=== PATIENT | male | born 1950 | race Caucasian/White ===

== ENCOUNTER → 2019-04-08 09:12 | Outpatient (CLI) | payer OTHER, SELFPAY ==
[2019-04-08 10:02] LABS: Hemoglobin A1C% w Est Avg Glu 6.1 % (4.0-6.0)
[2019-04-08 10:37] LABS: BUN Creatinine Ratio 26.7 (6-22); Blood Urea Nitrogen 24 mg/dL (9-20); Carbon Dioxide 27 mmol/L (22-32); Chloride 103 mmol/L (98-107); Cholesterol 112 mg/dL (140-199); Estimated Glomerular Filt Rate > 60.0 mL/min (>60); Glucose 147 mg/dL (80-110); HDL Cholesterol 47 mg/dL (40-60); HEMOLYSIS < 15 (0-50); LDL Cholesterol Calculated 50 mg/dL (<100); Potassium 4.7 mmol/L (3.4-5.1); Sodium 138 mmol/L (137-145); Triglycerides 75 mg/dL (35-150)
[2019-04-08 11:44] LABS: Prostate Specific Antigen Scrn < 0.064 ng/mL (0.1-4.0)
== END ==
PROVIDERS: PCP Student in an Organized Health Care Education/Training Program; Visit Provider Student in an Organized Health Care Education/Training Program
DX: E11.9 Type 2 diabetes mellitus without complications (principal); I10 Essential (primary) hypertension; C61 Malignant neoplasm of prostate
CPT/HCPCS: 36415; 80048; 80061; 83036; G0103

== ENCOUNTER → 2020-04-29 12:33 | Outpatient (CLI) | payer OTHER, SELFPAY ==
--- NOTE | 2020-04-29 | DI.US.S_ITS ---
PROCEDURE: US SCROTUM INDICATIONS: TESTICULAR PAIN TECHNIQUE: Real-time scanning was performed of the scrotum and testicles, with image documentation. Color and pulse Doppler interrogation was performed of both testicles. COMPARISON: None. FINDINGS: Right: Testicle is normal in size at 4.1 x 2.1 x 2.5 cm, and homogenous in echotexture. Epididymis is normal in overall size and morphology. No hydrocele or varicoceles. Overlying scrotal skin is normal in thickness. Left: Testicle is normal in size at 3.7 x 1.9 x 3 cm, and homogeneous in echotexture. Epididymis is mildly prominent. It is reported that the left epididymis corresponds to the area of the patient's sensitivity. No hydrocele or varicoceles. Overlying scrotal skin is normal in thickness. Doppler: Color and pulse Doppler demonstrate normal and symmetric arterial flow in both testicles. Increased vascularity can be seen involving the epididymis, left worse than right. IMPRESSION: Increased vascularity can be seen involving the epididymis. The left epididymis corresponds to the area of the patient's sensitivity. Epididymitis is suspected. Dictated by: Roberto Carlos Saucedo M.D. on 04/29/2020 at 15:26 Approved by: Roberto Carlos Saucedo M.D. on 04/29/2020 at 15:28
== END ==
PROVIDERS: PCP Student in an Organized Health Care Education/Training Program; Referring Provider Student in an Organized Health Care Education/Training Program; Visit Provider Student in an Organized Health Care Education/Training Program
DX: N50.819 Testicular pain, unspecified (principal)
CPT/HCPCS: 76870

== ENCOUNTER → 2020-06-29 10:04 | Outpatient (CLI) | payer OTHER, SELFPAY ==
--- NOTE | 2020-06-29 | DI.RAD.S_ITS ---
PROCEDURE: XR FOOT LT MIN 3V INDICATIONS: LEFT FOOT PAIN TECHNIQUE: 3 views of the foot were acquired. COMPARISON: None. FINDINGS: Bones: No fractures or dislocations. No suspicious bony lesions. There is a hallux valgus. Moderate 1st metatarsophalangeal joint degeneration. Soft tissues: No tibiotalar joint effusion. Achilles tendon appears normal. 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 Dictated by: Mikayla Fuller M.D. on 06/29/2020 at 11:40 Approved by: Mikayla Fuller M.D. on 06/29/2020 at 11:42
== END ==
PROVIDERS: PCP Student in an Organized Health Care Education/Training Program; Referring Provider Student in an Organized Health Care Education/Training Program; Visit Provider Student in an Organized Health Care Education/Training Program
DX: M79.672 Pain in left foot (principal); M20.12 Hallux valgus (acquired), left foot; M19.072 Primary osteoarthritis, left ankle and foot
CPT/HCPCS: 73630

== ENCOUNTER → 2021-06-12 11:06 | Outpatient (CLI) | payer OTHER, SELFPAY ==
--- NOTE | 2021-06-12 | DI.RAD.S_ITS ---
PROCEDURE: XR KUB INDICATIONS: CALCIUM IN URINE TECHNIQUE: One view of the abdomen acquired. COMPARISON: [facility], CT, CHEST/ABD/PELVIS W/CON (PNL), 02/13/2015, 15:52. FINDINGS: Surgical changes and devices: Bilateral lymph node dissection clips can be seen. Bowel: Bowel gas pattern is normal. Soft tissues: No suspicious abdominal calcifications. Visualized solid organ contours appear normal in size. Bones: The bones are slightly hyperdense, yet without discrete sclerotic lesion seen on this study. Age-appropriate bony degenerative changes are seen. Mild levoconvex scoliotic curvature is noted. IMPRESSION: No kidney stones are seen on this plain film study. No significant kidney abnormality can be seen on this plain film examination. If it would be helpful for clinical management decision making, please consider a dedicated CT of the abdomen pelvis, perhaps according to the IVP protocol. Postoperative and degenerative changes are seen. The bones are slightly hyperdense, yet without discrete suspicious sclerotic lesions. If the CT is done, the bones could be better evaluated. Alternatively (if there is strong clinical concern for prostate cancer metastatic disease to the bones) please consider a whole-body nuclear medicine bone scan. Dictated by: Roberto Carlos Saucedo M.D. on 06/12/2021 at 10:36 Approved by: Roberto Carlos Saucedo M.D. on 06/12/2021 at 10:38
== END ==
PROVIDERS: PCP Student in an Organized Health Care Education/Training Program; Referring Provider Student in an Organized Health Care Education/Training Program; Visit Provider Student in an Organized Health Care Education/Training Program
DX: N50.812 Left testicular pain (principal)
CPT/HCPCS: 74018

== ENCOUNTER → 2022-01-12 14:08 | Outpatient (CLI) | payer OTHER, SELFPAY ==
--- NOTE | 2022-01-12 14:11 | DI.US.S_ITS ---
PROCEDURE: US SCROTUM INDICATIONS: Left testicular pain TECHNIQUE: Real-time scanning was performed of the scrotum and testicles, with image documentation. Color and pulse Doppler interrogation was performed of both testicles. COMPARISON: [facility], , US SCROTUM, 04/29/2020, 12:47. FINDINGS: Right: Testicle is normal in size at 4 x 2 x 1.9 cm, and homogenous in echotexture. Epididymis is normal in overall size and morphology. Measures 0.4 cm. No hydrocele or varicoceles. Overlying scrotal skin is normal in thickness. Left: Testicle is normal in size at 3.7 x 2.3 x 1.8 cm, and homogeneous in echotexture. Scrotal pleural or testicular appendage measuring 0.4 x 0.4 x 0.3 cm. Epididymis is slightly thickened measuring 0.8 cm. No hyperemia demonstrated. Small hydrocele. No varicoceles. Overlying scrotal skin is normal in thickness. Doppler: Color and pulse Doppler demonstrate normal and symmetric arterial flow in both testicles. IMPRESSION: 1. Left epididymis is slightly thickened compared to the right. This could be the sequelae of prior inflammatory process. No hyperemia to suggest epididymitis at this time. 2. Small left hydrocele. 3. Left scrotal pleural or testicular appendage measuring 0.4 cm. 4. No testicular mass. Dictated by: Ernesto Manrique M.D. on 01/12/2022 at 16:29 Approved by: Ernesto Manrique M.D. on 01/12/2022 at 16:34
== END ==
PROVIDERS: PCP Student in an Organized Health Care Education/Training Program; Referring Provider Student in an Organized Health Care Education/Training Program; Visit Provider Student in an Organized Health Care Education/Training Program
DX: N50.812 Left testicular pain (principal); N43.3 Hydrocele, unspecified
CPT/HCPCS: 76870

== ENCOUNTER 2023-09-28 17:49 | Inpatient (IN) | payer MEDICARE, OTHER, SELFPAY ==
[2023-09-28] VITALS (20 sets, daily range): BP systolic 125–192; BP diastolic 64–94; PULSE 111–140; RESP 16–31; TEMP 36.8–37.7; O2SAT 94–98; BMI 22.0
--- NOTE | 2023-09-28 18:02 | DI.RAD.S_ITS ---
PROCEDURE: XR CHEST 1V INDICATIONS: chest pain TECHNIQUE: One view of the chest was acquired. COMPARISON: None. FINDINGS: Surgical changes and devices: None. Lungs and pleura: Lungs are clear. No pleural effusions or pneumothorax. Mediastinum: Mediastinal contours appear normal. Heart size is normal. Bones and chest wall: No suspicious bony lesions. Overlying soft tissues appear unremarkable. IMPRESSION: No acute cardiopulmonary abnormality is seen. Dictated by: Abhilash Victoria M.D. on 09/28/2023 at 19:05 Approved by: Abhilash Victoria M.D. on 09/28/2023 at 19:05
[2023-09-28 18:24] LABS: Add Manual Diff / Slide Review NO; Basophils Absolute Auto 0 /uL (0-100); Basophils Percent Auto 0.2 % (0-2); Eosinophils Absolute Auto 100 /uL (0-450); Eosinophils Percent Auto 0.5 % (2-4); Hematocrit 39.5 % (41-53); Hemoglobin 13.2 g/dL (13.5-17.5); Lymphocytes Absolute Auto 900 /uL (1100-4500); Lymphocytes Percent Auto 8.1 % (25-40); Mean Corpuscular HGB Conc 33.5 % (30-36); Mean Corpuscular Hemoglobin 29.7 PG (26-34); Mean Corpuscular Volume 88.5 fL (80-100); Monocytes Absolute Auto 1300 /uL (0-900); Neutrophils Absolute Auto 8700 /uL (1500-7000); Neutrophils Percent Auto 79.2 % (50-75); Platelet Count 216 X10^3/uL (150-400); Red Blood Cell Count 4.46 X10^6/uL (4.5-5.9); Red Cell Distribution Width 13.9 % (11.6-14.8)
--- NOTE | 2023-09-28 18:25 | PC.NURSE ---
Pt came to the ED today because he has been having increasing left knee pain and developing blisters around surgical site s/p having surgery on 09/25/[address] Gong. Pt notes that he started experiencing nausea and vomiting earlier today and was seen at the orthopedic surgeon's office by the on-call PA. Dressing changed at the office to non-stick gauze and chloe wrap. Pt was instructed to come to the ED due to elevated HR at 125. Pt denies fevers and is afebrile at triage, however, states that pt is acting sleepier than normal. Dressing removed and left knee is hot to touch, edemetous and red. No drainage noted. Pt a&ox4 and answers all questions appropriately. at bedside.
[2023-09-28 18:35] LABS: INR 1.1 (0.9-1.3); Prothrombin Time 12.7 SECONDS (9.4-12.5)
[2023-09-28 18:37] LABS: Lactate (Lactic Acid) 2.3 mmol/L (0.7-2.1); PTT Partial Thromboplastin Tim 30 SECONDS (25.1-36.5)
[2023-09-28 18:39] LABS: Alanine Aminotransferase 54 IU/L (<50); Albumin 4.3 g/dL (3.5-5.0); Albumin Globulin Ratio 1.2 (1.0-2.8); Alkaline Phosphatase 87 U/L (38-126); Aspartate Aminotransferase 56 IU/L (17-59); Bilirubin Total 1.1 mg/dL (0.2-1.3); Blood Urea Nitrogen 31 mg/dL (9-20); Calcium 9.2 mg/dL (8.4-10.2); Carbon Dioxide 23 mmol/L (22-32); Chloride 97 mmol/L (98-107); Creatine Kinase 208 U/L (55-170); Estimated Glomerular Filt Rate 44 mL/min (>60); Globulin 3.7 g/dL (1.7-4.1); Glucose 160 mg/dL (80-110); HEMOLYSIS < 15 (0-50); Lipase 30 U/L (23-300); Magnesium 1.9 mg/dL (1.6-2.3); Potassium 4.1 mmol/L (3.4-5.1); Sodium 135 mmol/L (137-145)
[2023-09-28 18:47] LABS: D Dimer 2131 ng/ml (<500)
[2023-09-28 18:50] LABS: Troponin I < 0.012 ng/mL (0.01-0.034)
[2023-09-28 18:55] LABS: Procalcitonin 0.64 ng/mL (<0.5)
[2023-09-28 20:01] LABS: Reflexed Lactate in 2 Hours Y
[2023-09-28] MEDS: SODIUM CHLORIDE 0.9% 1,000 ML 1000 ML IV ×2 (20:10→21:13)
--- NOTE | 2023-09-28 20:25 | DI.CT.S_ITS ---
PROCEDURE: CT ANGIO CHEST PE PROTOCOL INDICATIONS: dyspnea, elevated d dimer TECHNIQUE: After the administration of intravenous contrast, 2 mm thick sections acquired from the pulmonary apices to the posterior costophrenic angles. 3-dimensional maximum intensity projection (MIP) coronal and sagittal reformats were then acquired through the thorax. For radiation dose reduction, the following was used: automated exposure control, adjustment of mA and/or kV according to patient size. COMPARISON: None. FINDINGS: Image quality: Diagnostic, mild motion artifact Lungs and pleura: Bibasilar opacities and atelectasis. No dense consolidation or drainable pleural effusion. Overall lung volumes are low. There is bronchial wall thickening at the bases. No nodule over 6 mm. Smaller nodules are present, not requiring dedicated follow-up imaging per Fleischner guidelines. Mediastinum, heart, and esophagus: No acute pulmonary embolism identified. Some of the distal arteries are obscured by motion. No hiatal hernia. There are coronary calcifications. Borderline heart size. No pathologic lymph nodes by size criteria. Chest wall and thyroid: Unremarkable Upper abdomen: Left lobe liver cyst. Colonic diverticula. Duodenal diverticulum. Mildly distended gallbladder. No radiopaque gallstones. Bones: Degenerative changes, no acute or suspicious abnormality. Ill-defined sclerosis of the vertebral bodies. IMPRESSION: There is no acute pulmonary embolism. Mild bibasilar opacities likely representing aspiration/bronchitis and atelectasis. Consider future imaging surveillance to assess for resolution. Ill-defined sclerosis of the vertebral bodies is indeterminate, correlate with any history of malignancy such as prostate. Other findings as above. Dictated by: Skip Cain M.D. on 09/28/2023 at 21:14 Approved by: Skip Cain M.D. on 09/28/2023 at 21:20
[2023-09-28 20:42] LABS: Lactate 2HR (Lactic Acid Rflx) 2.2 mmol/L (0.7-2.1)
[2023-09-28] MEDS: PIPERACILLIN/TAZO 4.5 GM in SODIUM CHLORIDE 0.9% 100 ML IV (20:59)
--- NOTE | 2023-09-28 21:14 | ED_ITS ---
HPI - General Adult <Valorie Painter MD - Last Filed: 10/30/23 00:54> General Chief complaint: Fever Stated complaint: sent for rapid heartrate Time Seen by Provider: 09/28/23 18:07 Source: patient and family Mode of arrival: Wheelchair History of Present Illness HPI narrative: 73-year-old gentleman with history of diabetes, hypertension with left knee replacement on September 25. He developed some blistering from the tape around his wound and some vomiting today. He was at an orthopedic follow up appointment and he was noted to be significantly tachycardic, increasingly weak and sent to the ER for further evaluation. He notes that he has been so tired he almost felt that he was going to pass out today. He does not note that his heart rate is going particularly fast. He isn't complaining of fevers. He was surprised with the blisters that had developed around the wound, he was not aware that he had a tape allergy. Related Data Home Medications Medication Instructions Recorded Confirmed lisinopril 10 mg tablet 30 mg PO DAILY 02/24/22 09/30/23 metformin 500 mg tablet 2,000 mg PO DAILY 02/24/22 09/29/23 rizatriptan 5 mg tablet See Rx Instructions PO .COMPLEX 02/24/22 09/29/23 glipizide 10 mg tablet, extended 10 mg PO DAILY 09/28/23 09/29/23 release 24 hr aspirin 1 tab BID blood clot prevention 09/29/23 09/29/23 oxycodone 5 mg tablet 5 - 10 mg PO Q4HRWA Pain 09/29/23 09/29/23 Previous Rx's Medication Instructions Recorded amlodipine 5 mg tablet (Norvasc) 10 mg (2 x 5 mg) PO DAILY #30 tabs 10/01/23 metoprolol tartrate 25 mg tablet 100 mg (4 x 25 mg) PO BID #30 tabs 10/01/23 tamsulosin 0.4 mg capsule (Flomax) 0.4 mg PO DAILY #30 caps 10/01/23 Allergies Allergy/AdvReac Type Severity Reaction Status Date / Time No Known Drug Allergies Allergy Verified 09/28/23 19:16 Review of Systems <Valorie Painter MD - Last Filed: 10/30/23 00:54> Review of Systems Narrative: Pertinent positive and negative findings as per HPI Patient History <Valorie Painter MD - Last Filed: 10/30/23 00:54> Medical History Hypertension Diabetes Social History household members: significant other Smoking Status: Never smoker alcohol intake: current Smoking Status: Never smoker Substance Use Type: does not use Exam <Valorie Painter MD - Last Filed: 10/30/23 00:54> Initial Vital Signs Initial Vital Signs: Vital Signs Temperature 98.3 F 09/28/23 17:55 Pulse Rate 125 H 09/28/23 17:55 Respiratory Rate 16 09/28/23 17:55 Blood Pressure 137/66 09/28/23 17:55 Pulse Oximetry 98 09/28/23 17:55 Oxygen Delivery Method Room Air 09/28/23 17:55 General: Fatigued appearing but in no acute distress. Able to give a complete and coherent history. Well-nourished well-developed HEENT: Moist mucous membranes, normal sclera with reactive pupils, Neck: No JVD, supple Respiratory: Lungs are clear to auscultation, no wheezing no rales no rhonchi. Full and symmetrical air movement Cardiac: Tachycardic at 120, no murmurs Abdomen: Soft, nontender, good bowel tones, no flank pain Skin: Left surgical wound is evaluated. The wound itself looks like it is healing nicely. There are bulla around it in the same distribution as the tape. I am small bulla developing over his calf where the Matteo wrap had been rubbing. These do not appear to be infected. He has some bruising consistent with postoperative changes in the posterior thigh. Neurologic: Grossly neurologically intact with no obvious asymmetries or abnormalities Extremities: Right leg suggests decreased perfusion with capillary refill in the for 2nd range and some mild mottling. Left leg slightly swollen as should be expected 3 days postop. Neurovascularly intact bilaterally in the lower extremities. Psych: Cooperative, appropriate insight and affect <Sulema Plunkett DO - Last Filed: 09/29/23 08:17> Initial Vital Signs Initial Vital Signs: Vital Signs Temperature 98.3 F 09/28/23 17:55 Pulse Rate 125 H 09/28/23 17:55 Respiratory Rate 16 09/28/23 17:55 Blood Pressure 137/66 09/28/23 17:55 Pulse Oximetry 98 09/28/23 17:55 Oxygen Delivery Method Room Air 09/28/23 17:55 Course <Valorie Painter MD - Last Filed: 10/30/23 00:54> Orders Ordered: Discontinued Medications Acetaminophen (Acetaminophen 325 Mg Tablet) 975 mg PO NOW ONE Stop: 09/29/23 07:39 Last Admin: 09/29/23 08:02 Dose: 975 mg Documented By: AMV Acetaminophen (Acetaminophen 325 Mg Tablet) 975 mg PO Q6HR PRN PRN Reason: Fever/Mild Pain (1-3) Last Admin: 10/01/23 09:22 Dose: 975 mg Documented By: Admin: 09/30/23 17:02 Dose: 975 mg Documented By: Admin: 09/30/23 10:11 Dose: 975 mg Documented By: Admin: 09/29/23 23:23 Dose: 975 mg Documented By: AT Adenosine (Adenosine 6 Mg/2 Ml Vial) 6 mg IV NOW ONE Stop: 09/28/23 23:20 Last Admin: 09/28/23 23:37 Dose: 6 mg Documented By: OW Amlodipine Besylate (Amlodipine 5 Mg Tablet) 5 mg PO DAILY COUNT INCLUDES THE [facility] Last Admin: 09/30/23 17:02 Dose: 5 mg Documented By: MS Amlodipine Besylate (Amlodipine 5 Mg Tablet) 10 mg PO DAILY COUNT INCLUDES THE [facility] Last Admin: 10/01/23 08:17 Dose: 10 mg Documented By: MM Aspirin (Aspirin Ec 81 Mg Tablet) 81 mg PO BID COUNT INCLUDES THE [facility] Last Admin: 10/01/23 08:18 Dose: 81 mg Documented By: Admin: 09/30/23 21:38 Dose: 81 mg Documented By: AT Heparin Sodium (Porcine) (Heparin 5,000 Unit/Ml Vial) 5,250 unit 80 unit/kg (5250 unit) IV NOW ONE Stop: 09/28/23 23:55 Last Admin: 09/29/23 00:14 Dose: 5,250 unit Documented By: OW Heparin Sodium (Porcine) (Heparin 5,000 Unit/Ml Vial) 5,000 unit SUBCUT BID COUNT INCLUDES THE [facility] Last Admin: 10/01/23 08:18 Dose: 5,000 unit Documented By: Admin: 09/30/23 21:38 Dose: 5,000 unit Documented By: Admin: 09/30/23 08:00 Dose: 5,000 unit Documented By: Admin: 09/29/23 20:20 Dose: 5,000 unit Documented By: Admin: 09/29/23 10:10 Dose: 5,000 unit Documented By: DEANN Sodium Chloride (Normal Saline 0.9%) 1,000 mls @ 1,000 mls/hr IV BOLUS ONE Stop: 09/28/23 20:45 Last Infusion: 09/28/23 21:10 Dose: Infused Documented By: Admin: 09/28/23 20:10 Dose: 1,000 mls/hr Documented By: OW Sodium Chloride (Normal Saline 0.9%) 1,000 mls @ 1,000 mls/hr IV BOLUS PRN PRN Reason: Fluid replacement Last Infusion: 09/28/23 22:30 Dose: Infused Documented By: Admin: 09/28/23 21:13 Dose: 1,000 mls/hr Documented By: AISLINN Piperacillin Sod/Tazobactam (Sod 4.5 gm/ Sodium Chloride) 100 mls @ 200 mls/hr IV NOW ONE Stop: 09/28/23 20:26 Last Infusion: 09/28/23 21:46 Dose: Infused Documented By: Admin: 09/28/23 20:59 Dose: 200 mls/hr Documented By: AISLINN Heparin Sodium/Dextrose (Heparin Drip) 25,000 unit in 500 mls @ 23.678 mls/hr IV CONT KAREEM; Protocol Last Titration: 09/29/23 08:02 Dose: Infused Documented By: BLAYNE Co-signed By: MERRITT Admin: 09/29/23 00:18 Dose: 18 units/kg/hr, 23.678 mls/hr Documented By: AISLINN Co-signed By: ERIC Piperacillin Sod/Tazobactam (Sod 3.375 gm/ Sodium Chloride) 100 mls @ 25 mls/hr IV Q8H KAREEM Last Admin: 09/29/23 00:56 Dose: Not Given Documented By: AISLINN Piperacillin Sod/Tazobactam (Sod 3.375 gm/ Sodium Chloride) 100 mls @ 25 mls/hr IV Q8H KAREEM Last Admin: 09/29/23 11:00 Dose: Not Given Documented By: Infusion: 09/29/23 06:11 Dose: Infused Documented By: Admin: 09/29/23 01:30 Dose: 25 mls/hr Documented By: AISLINN Sodium Chloride (Normal Saline 0.9%) 1,000 mls @ 100 mls/hr IV CONT KAREEM Stop: 09/29/23 20:29 Last Infusion: 09/29/23 21:31 Dose: Infused Documented By: Admin: 09/29/23 11:30 Dose: 100 mls/hr Documented By: Infusion: 09/29/23 11:30 Dose: Infused Documented By: Admin: 09/29/23 10:18 Dose: 100 mls/hr Documented By: DEANN Magnesium Sulfate (Magnesium Sulfate) 2 gm in 50 mls @ 25 mls/hr IV NOW ONE Stop: 09/29/23 10:20 Last Admin: 09/29/23 10:03 Dose: 25 mls/hr Documented By: DEANN Co-signed By: KANDY Dextrose (D10w) 100 mls @ 1,200 mls/hr IV PRN PRN PRN Reason: Hypoglycemia Piperacillin Sod/Tazobactam (Sod 3.375 gm/ Sodium Chloride) 100 mls @ 25 mls/hr IV Q8H KAREEM Sodium Chloride (Normal Saline 0.9%) 1,000 mls @ 125 mls/hr IV CONT KAREEM Last Infusion: 10/01/23 05:28 Dose: Infused Documented By: Admin: 09/30/23 21:13 Dose: 125 mls/hr Documented By: Infusion: 09/30/23 19:47 Dose: Infused Documented By: Admin: 09/30/23 11:47 Dose: 125 mls/hr Documented By: Insulin Human Lispro (Insulin Lispro 100 Unit/Ml 3ml Vial) 0 unit SUBCUT ACHS KAREEM; Protocol Last Admin: 10/01/23 11:50 Dose: Not Given Documented By: Admin: 10/01/23 08:19 Dose: Not Given Documented By: Admin: 09/30/23 21:38 Dose: Not Given Documented By: Admin: 09/30/23 17:07 Dose: Not Given Documented By: Admin: 09/30/23 11:47 Dose: Not Given Documented By: Admin: 09/30/23 07:58 Dose: Not Given Documented By: Admin: 09/29/23 20:19 Dose: Not Given Documented By: Admin: 09/29/23 16:55 Dose: Not Given Documented By: Admin: 09/29/23 13:04 Dose: 1 unit Documented By: DEANN Co-signed By: KANDY Labetalol HCl (Labetalol 20 Mg/4 Ml Syringe) 10 mg IV Q5MIN PRN PRN Reason: SBP >180 or DBP >110 Last Admin: 09/30/23 15:36 Dose: 10 mg Documented By: Admin: 09/30/23 14:48 Dose: 10 mg Documented By: Lidocaine HCl (Lidocaine 2% (Glydo) 6 Ml Gel) 6 ml TOP NOW ONE Stop: 09/28/23 21:38 Last Admin: 09/28/23 21:50 Dose: 6 ml Documented By: JARED Lisinopril (Lisinopril 10 Mg Tablet) 10 mg PO DAILY COUNT INCLUDES THE [facility] Last Admin: 09/30/23 08:00 Dose: 10 mg Documented By: Admin: 09/29/23 10:16 Dose: 10 mg Documented By: DEANN Lisinopril (Lisinopril 10 Mg Tablet) 30 mg PO DAILY COUNT INCLUDES THE [facility] Last Admin: 10/01/23 08:17 Dose: 30 mg Documented By: MEGHANN Lisinopril (Lisinopril 20 Mg Tablet) 20 mg PO NOW ONE Stop: 09/30/23 12:01 Last Admin: 09/30/23 11:56 Dose: 20 mg Documented By: Magnesium Chloride (Magnesium Chloride 64 Mg Tablet) 128 mg PO NOW ONE Stop: 10/01/23 07:31 Last Admin: 10/01/23 08:19 Dose: 128 mg Documented By: MEGHANN Melatonin (Melatonin 3 Mg Tablet) 6 mg PO BEDTIME PRN PRN Reason: Insomnia Metformin HCl (Metformin Xr 500 Mg Tablet) 1,000 mg PO 0800,1700 COUNT INCLUDES THE [facility] Metoprolol Tartrate (Metoprolol Ir 25 Mg Tablet) 25 mg PO BID COUNT INCLUDES THE [facility] Last Admin: 09/29/23 08:02 Dose: 25 mg Documented By: Admin: 09/29/23 00:59 Dose: 25 mg Documented By: ERIC Metoprolol Tartrate (Metoprolol Ir 25 Mg Tablet) 25 mg PO Q6HR COUNT INCLUDES THE [facility] Last Admin: 09/29/23 18:06 Dose: 25 mg Documented By: Admin: 09/29/23 13:03 Dose: 25 mg Documented By: DEANN Metoprolol Tartrate (Metoprolol Ir 25 Mg Tablet) 50 mg PO Q6HR COUNT INCLUDES THE [facility] Last Admin: 10/01/23 12:52 Dose: 50 mg Documented By: Admin: 10/01/23 06:10 Dose: 50 mg Documented By: Admin: 10/01/23 00:27 Dose: 50 mg Documented By: Admin: 09/30/23 17:02 Dose: 50 mg Documented By: Admin: 09/30/23 11:46 Dose: 50 mg Documented By: Admin: 09/30/23 06:07 Dose: 50 mg Documented By: Admin: 09/30/23 00:15 Dose: 50 mg Documented By: AT Metoprolol Tartrate (Metoprolol Ir 25 Mg Tablet) 25 mg PO NOW ONE Stop: 09/29/23 19:01 Last Admin: 09/29/23 20:20 Dose: 25 mg Documented By: AT Metoprolol Tartrate (Metoprolol Ir 25 Mg Tablet) 50 mg PO NOW ONE Stop: 10/01/23 16:16 Last Admin: 10/01/23 16:15 Dose: 50 mg Documented By: MEGHANN Naloxone HCl (Naloxone 0.4 Mg/Ml Vial) 0.2 mg IV Q2MIN PRN PRN Reason: Opiate Reversal Non-Formulary Medication (Aspirin) 1 tab PO BID COUNT INCLUDES THE [facility] Non-Formulary Medication (Glipizide) 10 mg PO DAILY COUNT INCLUDES THE [facility] Last Admin: 10/01/23 09:21 Dose: Not Given Documented By: MEGHANN Ondansetron HCl (Ondansetron 4 Mg/2 Ml Inj) 4 mg IV Q4HR PRN PRN Reason: Nausea And Vomiting Oxycodone HCl (Oxycodone Ir 5 Mg Tablet) 5 mg PO Q4HR PRN PRN Reason: Pain, Moderate (4-6) Last Admin: 09/30/23 18:03 Dose: 5 mg Documented By: Admin: 09/30/23 14:33 Dose: 5 mg Documented By: Admin: 09/30/23 10:12 Dose: 5 mg Documented By: Admin: 09/30/23 00:15 Dose: 5 mg Documented By: Admin: 09/29/23 20:20 Dose: 5 mg Documented By: Admin: 09/29/23 15:22 Dose: 5 mg Documented By: Admin: 09/29/23 11:29 Dose: 5 mg Documented By: YULY Oxycodone HCl (Oxycodone Ir 10 Mg Tablet) 10 mg PO Q4HR PRN PRN Reason: Pain, Severe (7-10) Last Admin: 10/01/23 13:34 Dose: 10 mg Documented By: Admin: 10/01/23 09:22 Dose: 10 mg Documented By: Admin: 10/01/23 04:50 Dose: 10 mg Documented By: Admin: 10/01/23 00:28 Dose: 10 mg Documented By: Admin: 09/30/23 19:28 Dose: 10 mg Documented By: Admin: 09/30/23 15:36 Dose: 10 mg Documented By: Admin: 09/30/23 11:46 Dose: 10 mg Documented By: Admin: 09/30/23 07:58 Dose: 10 mg Documented By: Polyethylene Glycol (Polyethylene Glycol 3350 17 Gm Powd.Pack) 17 gm PO DAILY PRN PRN Reason: Constipation Polyethylene Glycol (Polyethylene Glycol 3350 17 Gm Powd.Pack) 17 gm PO DAILY COUNT INCLUDES THE [facility] Last Admin: 10/01/23 08:19 Dose: Not Given Documented By: Admin: 09/30/23 11:48 Dose: 17 gm Documented By: Potassium Chloride (Potassium Chloride 20 Meq Tab) 40 meq PO NOW ONE Stop: 09/29/23 12:16 Last Admin: 09/29/23 13:03 Dose: 40 meq Documented By: DEANN Sennosides (Sennosides 8.6 Mg Tablet) 8.6 mg PO BID PRN PRN Reason: Constipation Tamsulosin HCl (Tamsulosin 0.4 Mg Capsule) 0.4 mg PO DAILY COUNT INCLUDES THE [facility] Last Admin: 10/01/23 08:18 Dose: 0.4 mg Documented By: Admin: 09/30/23 11:46 Dose: 0.4 mg Documented By: Vital Signs Vital signs: Vital Signs - 8 hr 09/29/23 00:00 09/29/23 00:15 09/29/23 00:30 Temperature Pulse Rate 123 H 123 H 126 H Respiratory Rate 19 18 22 Blood Pressure 165/79 H 155/72 H Pulse Oximetry 97 95 96 Oxygen Delivery Method Room Air Room Air Oxygen Flow Rate 09/29/23 01:00 09/29/23 02:00 09/29/23 03:00 Temperature 99.2 F Pulse Rate 122 H 108 H 105 H Respiratory Rate 22 17 18 Blood Pressure 162/79 H 172/89 H 167/89 H Pulse Oximetry 96 99 99 Oxygen Delivery Method Room Air Room Air Room Air Oxygen Flow Rate 09/29/23 03:45 09/29/23 04:00 09/29/23 04:15 Temperature Pulse Rate 106 H 107 H 107 H Respiratory Rate 20 20 19 Blood Pressure Pulse Oximetry 97 96 96 Oxygen Delivery Method Room Air Oxygen Flow Rate 09/29/23 04:30 09/29/23 04:45 09/29/23 04:47 Temperature Pulse Rate 110 H 112 H 113 H Respiratory Rate 19 18 21 Blood Pressure Pulse Oximetry 96 93 97 Oxygen Delivery Method Oxygen Flow Rate 09/29/23 04:47 09/29/23 05:00 09/29/23 05:30 Temperature Pulse Rate 109 H 109 H Respiratory Rate 16 16 Blood Pressure 176/86 H Pulse Oximetry 99 99 Oxygen Delivery Method Oxygen Flow Rate 09/29/23 06:00 09/29/23 07:10 Temperature Pulse Rate 109 H 117 H Respiratory Rate 16 21 Blood Pressure 200/94 H Pulse Oximetry 98 97 Oxygen Delivery Method Nasal Cannula Room Air Oxygen Flow Rate 2 <Sulema Plunkett, - Last Filed: 09/29/23 08:17> Orders Ordered: Discontinued Medications Acetaminophen (Acetaminophen 325 Mg Tablet) 975 mg PO NOW ONE Stop: 09/29/23 07:39 Last Admin: 09/29/23 08:02 Dose: 975 mg Documented By: AMCornelio Acetaminophen (Acetaminophen 325 Mg Tablet) 975 mg PO Q6HR PRN PRN Reason: Fever/Mild Pain (1-3) Last Admin: 10/01/23 09:22 Dose: 975 mg Documented By: Admin: 09/30/23 17:02 Dose: 975 mg Documented By: Admin: 09/30/23 10:11 Dose: 975 mg Documented By: Admin: 09/29/23 23:23 Dose: 975 mg Documented By: AT Adenosine (Adenosine 6 Mg/2 Ml Vial) 6 mg IV NOW ONE Stop: 09/28/23 23:20 Last Admin: 09/28/23 23:37 Dose: 6 mg Documented By: OW Amlodipine Besylate (Amlodipine 5 Mg Tablet) 5 mg PO DAILY COUNT INCLUDES THE [facility] Last Admin: 09/30/23 17:02 Dose: 5 mg Documented By: MS Amlodipine Besylate (Amlodipine 5 Mg Tablet) 10 mg PO DAILY COUNT INCLUDES THE [facility] Last Admin: 10/01/23 08:17 Dose: 10 mg Documented By: MM Aspirin (Aspirin Ec 81 Mg Tablet) 81 mg PO BID COUNT INCLUDES THE [facility] Last Admin: 10/01/23 08:18 Dose: 81 mg Documented By: Admin: 09/30/23 21:38 Dose: 81 mg Documented By: AT Heparin Sodium (Porcine) (Heparin 5,000 Unit/Ml Vial) 5,250 unit 80 unit/kg (5250 unit) IV NOW ONE Stop: 09/28/23 23:55 Last Admin: 09/29/23 00:14 Dose: 5,250 unit Documented By: OW Heparin Sodium (Porcine) (Heparin 5,000 Unit/Ml Vial) 5,000 unit SUBCUT BID COUNT INCLUDES THE [facility] Last Admin: 10/01/23 08:18 Dose: 5,000 unit Documented By: Admin: 09/30/23 21:38 Dose: 5,000 unit Documented By: Admin: 09/30/23 08:00 Dose: 5,000 unit Documented By: Admin: 09/29/23 20:20 Dose: 5,000 unit Documented By: Admin: 09/29/23 10:10 Dose: 5,000 unit Documented By: EJ Sodium Chloride (Normal Saline 0.9%) 1,000 mls @ 1,000 mls/hr IV BOLUS ONE Stop: 09/28/23 20:45 Last Infusion: 09/28/23 21:10 Dose: Infused Documented By: Admin: 09/28/23 20:10 Dose: 1,000 mls/hr Documented By: OW Sodium Chloride (Normal Saline 0.9%) 1,000 mls @ 1,000 mls/hr IV BOLUS PRN PRN Reason: Fluid replacement Last Infusion: 09/28/23 22:30 Dose: Infused Documented By: Admin: 09/28/23 21:13 Dose: 1,000 mls/hr Documented By: OW Piperacillin Sod/Tazobactam (Sod 4.5 gm/ Sodium Chloride) 100 mls @ 200 mls/hr IV NOW ONE Stop: 09/28/23 20:26 Last Infusion: 09/28/23 21:46 Dose: Infused Documented By: Admin: 09/28/23 20:59 Dose: 200 mls/hr Documented By: AISLINN Heparin Sodium/Dextrose (Heparin Drip) 25,000 unit in 500 mls @ 23.678 mls/hr IV CONT KAREEM; Protocol Last Titration: 09/29/23 08:02 Dose: Infused Documented By: BLAYNE Co-signed By: MERRITT Admin: 09/29/23 00:18 Dose: 18 units/kg/hr, 23.678 mls/hr Documented By: AISLINN Co-signed By: ERIC Piperacillin Sod/Tazobactam (Sod 3.375 gm/ Sodium Chloride) 100 mls @ 25 mls/hr IV Q8H COUNT INCLUDES THE [facility] Last Admin: 09/29/23 00:56 Dose: Not Given Documented By: AISLINN Piperacillin Sod/Tazobactam (Sod 3.375 gm/ Sodium Chloride) 100 mls @ 25 mls/hr IV Q8H COUNT INCLUDES THE [facility] Last Admin: 09/29/23 11:00 Dose: Not Given Documented By: Infusion: 09/29/23 06:11 Dose: Infused Documented By: Admin: 09/29/23 01:30 Dose: 25 mls/hr Documented By: AISLINN Sodium Chloride (Normal Saline 0.9%) 1,000 mls @ 100 mls/hr IV CONT KAREEM Stop: 09/29/23 20:29 Last Infusion: 09/29/23 21:31 Dose: Infused Documented By: Admin: 09/29/23 11:30 Dose: 100 mls/hr Documented By: Infusion: 09/29/23 11:30 Dose: Infused Documented By: Admin: 09/29/23 10:18 Dose: 100 mls/hr Documented By: DEANN Magnesium Sulfate (Magnesium Sulfate) 2 gm in 50 mls @ 25 mls/hr IV NOW ONE Stop: 09/29/23 10:20 Last Admin: 09/29/23 10:03 Dose: 25 mls/hr Documented By: DEANN Co-signed By: KANDY Dextrose (D10w) 100 mls @ 1,200 mls/hr IV PRN PRN PRN Reason: Hypoglycemia Piperacillin Sod/Tazobactam (Sod 3.375 gm/ Sodium Chloride) 100 mls @ 25 mls/hr IV Q8H KAREEM Sodium Chloride (Normal Saline 0.9%) 1,000 mls @ 125 mls/hr IV CONT KAREEM Last Infusion: 10/01/23 05:28 Dose: Infused Documented By: Admin: 09/30/23 21:13 Dose: 125 mls/hr Documented By: Infusion: 09/30/23 19:47 Dose: Infused Documented By: Admin: 09/30/23 11:47 Dose: 125 mls/hr Documented By: Insulin Human Lispro (Insulin Lispro 100 Unit/Ml 3ml Vial) 0 unit SUBCUT ACHS COUNT INCLUDES THE [facility]; Protocol Last Admin: 10/01/23 11:50 Dose: Not Given Documented By: Admin: 10/01/23 08:19 Dose: Not Given Documented By: Admin: 09/30/23 21:38 Dose: Not Given Documented By: Admin: 09/30/23 17:07 Dose: Not Given Documented By: Admin: 09/30/23 11:47 Dose: Not Given Documented By: Admin: 09/30/23 07:58 Dose: Not Given Documented By: Admin: 09/29/23 20:19 Dose: Not Given Documented By: Admin: 09/29/23 16:55 Dose: Not Given Documented By: Admin: 09/29/23 13:04 Dose: 1 unit Documented By: DEANN Co-signed By: KANDY Labetalol HCl (Labetalol 20 Mg/4 Ml Syringe) 10 mg IV Q5MIN PRN PRN Reason: SBP >180 or DBP >110 Last Admin: 09/30/23 15:36 Dose: 10 mg Documented By: Admin: 09/30/23 14:48 Dose: 10 mg Documented By: Lidocaine HCl (Lidocaine 2% (Glydo) 6 Ml Gel) 6 ml TOP NOW ONE Stop: 09/28/23 21:38 Last Admin: 09/28/23 21:50 Dose: 6 ml Documented By: JARED Lisinopril (Lisinopril 10 Mg Tablet) 10 mg PO DAILY COUNT INCLUDES THE [facility] Last Admin: 09/30/23 08:00 Dose: 10 mg Documented By: Admin: 09/29/23 10:16 Dose: 10 mg Documented By: DEANN Lisinopril (Lisinopril 10 Mg Tablet) 30 mg PO DAILY COUNT INCLUDES THE [facility] Last Admin: 10/01/23 08:17 Dose: 30 mg Documented By: MEGHANN Lisinopril (Lisinopril 20 Mg Tablet) 20 mg PO NOW ONE Stop: 09/30/23 12:01 Last Admin: 09/30/23 11:56 Dose: 20 mg Documented By: Magnesium Chloride (Magnesium Chloride 64 Mg Tablet) 128 mg PO NOW ONE Stop: 10/01/23 07:31 Last Admin: 10/01/23 08:19 Dose: 128 mg Documented By: MEGHANN Melatonin (Melatonin 3 Mg Tablet) 6 mg PO BEDTIME PRN PRN Reason: Insomnia Metformin HCl (Metformin Xr 500 Mg Tablet) 1,000 mg PO 0800,1700 COUNT INCLUDES THE [facility] Metoprolol Tartrate (Metoprolol Ir 25 Mg Tablet) 25 mg PO BID COUNT INCLUDES THE [facility] Last Admin: 09/29/23 08:02 Dose: 25 mg Documented By: Admin: 09/29/23 00:59 Dose: 25 mg Documented By: ERIC Metoprolol Tartrate (Metoprolol Ir 25 Mg Tablet) 25 mg PO Q6HR COUNT INCLUDES THE [facility] Last Admin: 09/29/23 18:06 Dose: 25 mg Documented By: Admin: 09/29/23 13:03 Dose: 25 mg Documented By: DEANN Metoprolol Tartrate (Metoprolol Ir 25 Mg Tablet) 50 mg PO Q6HR COUNT INCLUDES THE [facility] Last Admin: 10/01/23 12:52 Dose: 50 mg Documented By: Admin: 10/01/23 06:10 Dose: 50 mg Documented By: Admin: 10/01/23 00:27 Dose: 50 mg Documented By: Admin: 09/30/23 17:02 Dose: 50 mg Documented By: Admin: 09/30/23 11:46 Dose: 50 mg Documented By: Admin: 09/30/23 06:07 Dose: 50 mg Documented By: Admin: 09/30/23 00:15 Dose: 50 mg Documented By: AT Metoprolol Tartrate (Metoprolol Ir 25 Mg Tablet) 25 mg PO NOW ONE Stop: 09/29/23 19:01 Last Admin: 09/29/23 20:20 Dose: 25 mg Documented By: AT Metoprolol Tartrate (Metoprolol Ir 25 Mg Tablet) 50 mg PO NOW ONE Stop: 10/01/23 16:16 Last Admin: 10/01/23 16:15 Dose: 50 mg Documented By: MEGHANN Naloxone HCl (Naloxone 0.4 Mg/Ml Vial) 0.2 mg IV Q2MIN PRN PRN Reason: Opiate Reversal Non-Formulary Medication (Aspirin) 1 tab PO BID COUNT INCLUDES THE [facility] Non-Formulary Medication (Glipizide) 10 mg PO DAILY COUNT INCLUDES THE [facility] Last Admin: 10/01/23 09:21 Dose: Not Given Documented By: MEGHANN Ondansetron HCl (Ondansetron 4 Mg/2 Ml Inj) 4 mg IV Q4HR PRN PRN Reason: Nausea And Vomiting Oxycodone HCl (Oxycodone Ir 5 Mg Tablet) 5 mg PO Q4HR PRN PRN Reason: Pain, Moderate (4-6) Last Admin: 09/30/23 18:03 Dose: 5 mg Documented By: Admin: 09/30/23 14:33 Dose: 5 mg Documented By: Admin: 09/30/23 10:12 Dose: 5 mg Documented By: Admin: 09/30/23 00:15 Dose: 5 mg Documented By: Admin: 09/29/23 20:20 Dose: 5 mg Documented By: Admin: 09/29/23 15:22 Dose: 5 mg Documented By: Admin: 09/29/23 11:29 Dose: 5 mg Documented By: YULY Oxycodone HCl (Oxycodone Ir 10 Mg Tablet) 10 mg PO Q4HR PRN PRN Reason: Pain, Severe (7-10) Last Admin: 10/01/23 13:34 Dose: 10 mg Documented By: Admin: 10/01/23 09:22 Dose: 10 mg Documented By: Admin: 10/01/23 04:50 Dose: 10 mg Documented By: Admin: 10/01/23 00:28 Dose: 10 mg Documented By: Admin: 09/30/23 19:28 Dose: 10 mg Documented By: Admin: 09/30/23 15:36 Dose: 10 mg Documented By: Admin: 09/30/23 11:46 Dose: 10 mg Documented By: Admin: 09/30/23 07:58 Dose: 10 mg Documented By: Polyethylene Glycol (Polyethylene Glycol 3350 17 Gm Powd.Pack) 17 gm PO DAILY PRN PRN Reason: Constipation Polyethylene Glycol (Polyethylene Glycol 3350 17 Gm Powd.Pack) 17 gm PO DAILY COUNT INCLUDES THE [facility] Last Admin: 10/01/23 08:19 Dose: Not Given Documented By: Admin: 09/30/23 11:48 Dose: 17 gm Documented By: Potassium Chloride (Potassium Chloride 20 Meq Tab) 40 meq PO NOW ONE Stop: 09/29/23 12:16 Last Admin: 09/29/23 13:03 Dose: 40 meq Documented By: DEANN Sennosides (Sennosides 8.6 Mg Tablet) 8.6 mg PO BID PRN PRN Reason: Constipation Tamsulosin HCl (Tamsulosin 0.4 Mg Capsule) 0.4 mg PO DAILY COUNT INCLUDES THE [facility] Last Admin: 10/01/23 08:18 Dose: 0.4 mg Documented By: Admin: 09/30/23 11:46 Dose: 0.4 mg Documented By: Vital Signs Vital signs: Vital Signs - 8 hr 09/29/23 00:00 09/29/23 00:15 09/29/23 00:30 Temperature Pulse Rate 123 H 123 H 126 H Respiratory Rate 19 18 22 Blood Pressure 165/79 H 155/72 H Pulse Oximetry 97 95 96 Oxygen Delivery Method Room Air Room Air Oxygen Flow Rate 09/29/23 01:00 09/29/23 02:00 09/29/23 03:00 Temperature 99.2 F Pulse Rate 122 H 108 H 105 H Respiratory Rate 22 17 18 Blood Pressure 162/79 H 172/89 H 167/89 H Pulse Oximetry 96 99 99 Oxygen Delivery Method Room Air Room Air Room Air Oxygen Flow Rate 09/29/23 03:45 09/29/23 04:00 09/29/23 04:15 Temperature Pulse Rate 106 H 107 H 107 H Respiratory Rate 20 20 19 Blood Pressure Pulse Oximetry 97 96 96 Oxygen Delivery Method Room Air Oxygen Flow Rate 09/29/23 04:30 09/29/23 04:45 09/29/23 04:47 Temperature Pulse Rate 110 H 112 H 113 H Respiratory Rate 19 18 21 Blood Pressure Pulse Oximetry 96 93 97 Oxygen Delivery Method Oxygen Flow Rate 09/29/23 04:47 09/29/23 05:00 09/29/23 05:30 Temperature Pulse Rate 109 H 109 H Respiratory Rate 16 16 Blood Pressure 176/86 H Pulse Oximetry 99 99 Oxygen Delivery Method Oxygen Flow Rate 09/29/23 06:00 09/29/23 07:10 Temperature Pulse Rate 109 H 117 H Respiratory Rate 16 21 Blood Pressure 200/94 H Pulse Oximetry 98 97 Oxygen Delivery Method Nasal Cannula Room Air Oxygen Flow Rate 2 Medical Decision Making <Valorie Painter MD - Last Filed: 10/30/23 00:54> Lab Data 10/01/23 04:42 10/01/23 04:42 Labs: Lab Results 09/28/23 09/28/23 09/28/23 Range/Units 18:15 20:10 22:22 WBC 11.0 (4.5-11.0) X10^3/uL RBC 4.46 L (4.5-5.9) X10^6/uL Hgb 13.2 L (13.5-17.5) g/dL Hct 39.5 L (41-53) % MCV 88.5 (80-100) fL MCH 29.7 (26-34) PG MCHC 33.5 (30-36) % RDW 13.9 (11.6-14.8) % Plt Count 216 (150-400) X10^3/uL Neut % (Auto) 79.2 H (50-75) % Lymph % (Auto) 8.1 L (25-40) % Boone % (Auto) 12.0 (3-14) % Eos % (Auto) 0.5 L (2-4) % Baso % (Auto) 0.2 (0-2) % Neut # (Auto) 8700 H (0117-3944) /uL Lymph # (Auto) 900 L (2763-4923) /uL Boone # (Auto) 1300 H (0-900) /uL Eos # (Auto) 100 (0-450) /uL Baso # (Auto) 0 (0-100) /uL PT 12.7 H (9.4-12.5) SECONDS INR 1.1 (0.9-1.3) APTT 30 (25.1-36.5) SECONDS D-Dimer 2131 H (<500) ng/ml Sodium 135 L (137-145) mmol/L Potassium 4.1 (3.4-5.1) mmol/L Chloride 97 L (98-107) mmol/L Carbon Dioxide 23 (22-32) mmol/L BUN 31 H (9-20) mg/dL Creatinine 1.63 H (0.66-1.25) mg/dL Estimated GFR 44 L (>60) mL/min BUN/Creatinine Ratio 19.0 (6-22) Glucose 160 H (80-110) mg/dL Hemoglobin A1c (4.0-6.0) % Lactate 2.3 H 2.2 H (0.7-2.1) mmol/L Calcium 9.2 (8.4-10.2) mg/dL Magnesium 1.9 (1.6-2.3) mg/dL Total Bilirubin 1.1 (0.2-1.3) mg/dL AST 56 (17-59) IU/L ALT 54 H (<50) IU/L Alkaline Phosphatase 87 (38-126) U/L Total Creatine Kinase 208 H (55-170) U/L Troponin I < 0.012 (0.01-0.034) ng/mL C-Reactive Protein (<1.0) mg/dL Total Protein 8.0 (6.3-8.2) g/dL Albumin 4.3 (3.5-5.0) g/dL Globulin 3.7 (1.7-4.1) g/dL Albumin/Globulin Ratio 1.2 (1.0-2.8) Lipase 30 (23-300) U/L Procalcitonin 0.64 H (<0.5) ng/mL TSH (0.47-4.68) uIU/mL Free T4 (0.78-2.19) ng/dL Urine RBC 0-1/hpf (0-5/HPF) Urine WBC None seen (0-5/HPF) Ur Squamous Epith Cells None seen (0-5/HPF) Urine Bacteria None seen (None) Ur Culture Indicated? Cult not indicated 09/28/23 09/29/23 09/29/23 Range/Units 23:05 00:07 03:30 WBC (4.5-11.0) X10^3/uL RBC (4.5-5.9) X10^6/uL Hgb (13.5-17.5) g/dL Hct (41-53) % MCV (80-100) fL MCH (26-34) PG MCHC (30-36) % RDW (11.6-14.8) % Plt Count (150-400) X10^3/uL Neut % (Auto) (50-75) % Lymph % (Auto) (25-40) % Boone % (Auto) (3-14) % Eos % (Auto) (2-4) % Baso % (Auto) (0-2) % Neut # (Auto) (8498-0867) /uL Lymph # (Auto) (3918-0301) /uL Boone # (Auto) (0-900) /uL Eos # (Auto) (0-450) /uL Baso # (Auto) (0-100) /uL PT (9.4-12.5) SECONDS INR (0.9-1.3) APTT 27 (25.1-36.5) SECONDS D-Dimer (<500) ng/ml Sodium (137-145) mmol/L Potassium (3.4-5.1) mmol/L Chloride (98-107) mmol/L Carbon Dioxide (22-32) mmol/L BUN (9-20) mg/dL Creatinine (0.66-1.25) mg/dL Estimated GFR (>60) mL/min BUN/Creatinine Ratio (6-22) Glucose (80-110) mg/dL Hemoglobin A1c (4.0-6.0) % Lactate 1.1 (0.7-2.1) mmol/L Calcium (8.4-10.2) mg/dL Magnesium (1.6-2.3) mg/dL Total Bilirubin (0.2-1.3) mg/dL AST (17-59) IU/L ALT (<50) IU/L Alkaline Phosphatase (38-126) U/L Total Creatine Kinase (55-170) U/L Troponin I < 0.012 (0.01-0.034) ng/mL C-Reactive Protein (<1.0) mg/dL Total Protein (6.3-8.2) g/dL Albumin (3.5-5.0) g/dL Globulin (1.7-4.1) g/dL Albumin/Globulin Ratio (1.0-2.8) Lipase (23-300) U/L Procalcitonin (<0.5) ng/mL TSH (0.47-4.68) uIU/mL Free T4 (0.78-2.19) ng/dL Urine RBC (0-5/HPF) Urine WBC (0-5/HPF) Ur Squamous Epith Cells (0-5/HPF) Urine Bacteria (None) Ur Culture Indicated? 09/29/23 09/29/23 09/30/23 Range/Units 06:16 10:16 04:38 WBC 7.4 (4.5-11.0) X10^3/uL RBC 3.79 L (4.5-5.9) X10^6/uL Hgb 11.4 L 11.4 L (13.5-17.5) g/dL Hct 33.0 L 34.1 L (41-53) % MCV 89.8 (80-100) fL MCH 30.1 (26-34) PG MCHC 33.5 (30-36) % RDW 14.0 (11.6-14.8) % Plt Count 202 205 (150-400) X10^3/uL Neut % (Auto) 53.9 D (50-75) % Lymph % (Auto) 30.4 D (25-40) % Boone % (Auto) 14.2 H (3-14) % Eos % (Auto) 1.2 L (2-4) % Baso % (Auto) 0.3 (0-2) % Neut # (Auto) 4000 (5719-0694) /uL Lymph # (Auto) 2200 (5712-6292) /uL Boone # (Auto) 1000 H (0-900) /uL Eos # (Auto) 100 (0-450) /uL Baso # (Auto) 0 (0-100) /uL PT (9.4-12.5) SECONDS INR (0.9-1.3) APTT 45 H D (25.1-36.5) SECONDS D-Dimer (<500) ng/ml Sodium 134 L 135 L (137-145) mmol/L Potassium 3.5 4.0 (3.4-5.1) mmol/L Chloride 101 101 (98-107) mmol/L Carbon Dioxide 25 27 (22-32) mmol/L BUN 21 H 19 (9-20) mg/dL Creatinine 0.96 0.82 (0.66-1.25) mg/dL Estimated GFR > 60 > 60 (>60) mL/min BUN/Creatinine Ratio 21.9 23.2 H (6-22) Glucose 223 H 134 H (80-110) mg/dL Hemoglobin A1c 6.6 H (4.0-6.0) % Lactate (0.7-2.1) mmol/L Calcium 8.4 8.4 (8.4-10.2) mg/dL Magnesium 2.1 (1.6-2.3) mg/dL Total Bilirubin (0.2-1.3) mg/dL AST (17-59) IU/L ALT (<50) IU/L Alkaline Phosphatase (38-126) U/L Total Creatine Kinase (55-170) U/L Troponin I (0.01-0.034) ng/mL C-Reactive Protein 23.0 H (<1.0) mg/dL Total Protein (6.3-8.2) g/dL Albumin (3.5-5.0) g/dL Globulin (1.7-4.1) g/dL Albumin/Globulin Ratio (1.0-2.8) Lipase (23-300) U/L Procalcitonin 0.32 0.18 (<0.5) ng/mL TSH 0.38 L (0.47-4.68) uIU/mL Free T4 1.52 (0.78-2.19) ng/dL Urine RBC (0-5/HPF) Urine WBC (0-5/HPF) Ur Squamous Epith Cells (0-5/HPF) Urine Bacteria (None) Ur Culture Indicated? 09/30/23 10/01/23 Range/Units 18:55 04:42 WBC 7.2 (4.5-11.0) X10^3/uL RBC 3.31 L (4.5-5.9) X10^6/uL Hgb 10.1 L (13.5-17.5) g/dL Hct 29.4 L (41-53) % MCV 88.9 (80-100) fL MCH 30.4 (26-34) PG MCHC 34.2 (30-36) % RDW 14.0 (11.6-14.8) % Plt Count 196 (150-400) X10^3/uL Neut % (Auto) 54.1 (50-75) % Lymph % (Auto) 30.3 (25-40) % Boone % (Auto) 13.6 (3-14) % Eos % (Auto) 1.7 L (2-4) % Baso % (Auto) 0.3 (0-2) % Neut # (Auto) 3900 (1891-8124) /uL Lymph # (Auto) 2200 (2673-3478) /uL Boone # (Auto) 1000 H (0-900) /uL Eos # (Auto) 100 (0-450) /uL Baso # (Auto) 0 (0-100) /uL PT (9.4-12.5) SECONDS INR (0.9-1.3) APTT (25.1-36.5) SECONDS D-Dimer (<500) ng/ml Sodium 133 L (137-145) mmol/L Potassium 3.9 (3.4-5.1) mmol/L Chloride 103 (98-107) mmol/L Carbon Dioxide 25 (22-32) mmol/L BUN 12 (9-20) mg/dL Creatinine 0.69 (0.66-1.25) mg/dL Estimated GFR > 60 (>60) mL/min BUN/Creatinine Ratio 17.4 (6-22) Glucose 154 H (80-110) mg/dL Hemoglobin A1c (4.0-6.0) % Lactate (0.7-2.1) mmol/L Calcium 8.4 (8.4-10.2) mg/dL Magnesium 1.7 (1.6-2.3) mg/dL Total Bilirubin (0.2-1.3) mg/dL AST (17-59) IU/L ALT (<50) IU/L Alkaline Phosphatase (38-126) U/L Total Creatine Kinase (55-170) U/L Troponin I < 0.012 (0.01-0.034) ng/mL C-Reactive Protein (<1.0) mg/dL Total Protein (6.3-8.2) g/dL Albumin (3.5-5.0) g/dL Globulin (1.7-4.1) g/dL Albumin/Globulin Ratio (1.0-2.8) Lipase (23-300) U/L Procalcitonin 0.13 (<0.5) ng/mL TSH (0.47-4.68) uIU/mL Free T4 (0.78-2.19) ng/dL Urine RBC (0-5/HPF) Urine WBC (0-5/HPF) Ur Squamous Epith Cells (0-5/HPF) Urine Bacteria (None) Ur Culture Indicated? Point of Care Testing Glucose POC 129 Urine Dip Bedside Urine Glucose Negative Bedside Urine Bilirubin - Negative Bedside Urine Ketone - Negative Bedside Urine Occult Blood +/- Bedside Urine pH 6 Bedside Urine Protein - Negative Bedside Urine Urobilinogen - Negative Bedside Urine Nitrite - Negative Bedside Urine Leukocytes - Negative Esterase Point of care testing: Point of Care Testing Glucose POC 129 Urine Dip Bedside Urine Glucose Negative Bedside Urine Bilirubin - Negative Bedside Urine Ketone - Negative Bedside Urine Occult Blood +/- Bedside Urine pH 6 Bedside Urine Protein - Negative Bedside Urine Urobilinogen - Negative Bedside Urine Nitrite - Negative Bedside Urine Leukocytes - Negative Esterase MDM Narrative Medical decision making narrative: CC: Increasing pain and erythema around left knee wound, knee replacement on the 8th Complicating co-morbidities: Diabetes, hypertension, left knee replacement on the 8th. Data collected from: patient, Differential considered: Sepsis, PE, postoperative infection, pulmonary atelectasis, urinary tract infection, wound infection Exam documented above, pertinent findings include: Persistent tachycardia even after a L of fluid. Decreased perfusion in the right lower extremity and difficult to tell them left due to swelling postop. He has bulla developing around the wound secondary to dressing but the wound itself looks like it is healing nicely. Lab Test results independently reviewed as above. Pertinent findings: CBC shows no significant leukocytosis however neutrophils are slightly elevated at 79.2. Not significantly anemic D-dimer is significantly elevated to 2131. Given the tachycardia with which he presents this is concerning enough even knowing that he is [address] that a CT angiogram has been ordered Chemistries demonstrate a moderate bumped to creatinine from 0.9-1.63. GFR is down to 44. Lactic was slightly elevated at 2.3. With no fluid resuscitation it was down to 2.2 creatinine kinase is slightly elevated consistent with recent surgery. Troponin is undetectable Procalcitonin is slightly elevated at 0.64 AM labs Slight decrease in H&H. Hemoglobin has gone from 13.2 to 11.4 Repeat troponin is undetectable Independently reviewed EKG: Sinus tachycardia at a rate of 122. Nonspecific STT wave abnormalities In light of the fact that his heart rate is staying almost exactly at 122 despite additional interventions and reviewing the EKG I am wondering if he actually might be in a two-to-one flutter. Around 5:30 a.m. heart rate significantly lowered. Suspect he converted from atrial flutter to sinus tachycardia. 6:30 EKG shows sinus tachycardia at a rate of 110 clearly now in sinus rhythm Imaging studies independently reviewed: Chest x-ray does not suggest significant volume overload. No acute abnormalities CT angiogram as interpreted by Radiology: IMPRESSION: There is no acute pulmonary embolism. Mild bibasilar opacities likely representing aspiration/bronchitis and atelectasis. Consider future imaging surveillance to assess for resolution. Ill-defined sclerosis of the vertebral bodies is indeterminate, correlate with any history of malignancy such as discussed Prostate. Treatments: Bladder scan shows almost 500 cc postvoid. He does have a history of bladder cancer with prostatectomy in 2013. Albarran catheter will be placed. Discussion: 73-year-old gentleman 3 days postop left knee replacement with acute kidney injury, dehydration, bladder outlet obstruction with acute urinary retention, persistent tachycardia unexplained, probable bilateral atelectasis and will benefit from incentive spirometer. Of note, patient does have a history of prostate cancer and the ?ill-defined sclerosis of vertebral bodies should have further evaluation This time I do not think that his surgical site is infected. He does have bulla around the wound secondary to tape and elastic allergy. These are not infected. A Telfa pad and Kerlix gauze was used to cover the wound. There was initial concern for infection and he was started on Zosyn. After further evaluation he does not have significant leukocytosis, does not have a urinary tract infection, does not appear to have a skin infection, I do not think that his wound is infected. I believe the pulmonary atelectasis is simply postsurgical atelectasis. We will discuss continued antibiotics with the admitting hospitalist Service. We will recommend admission due to acute kidney injury, dehydration, acute urinary retention and persistent tachycardia with bibasilar atelectasis. Will ask for incentive spirometry. CT scan does not suggest acute pulmonary embolism 1105pm discussed admission with hospitalist. With concern for possible new atrial fibrillation with 2-1 flutter his request was to review with Cardiology before we accept him into our hospital. [employer] has been paged. 11:15 case and EKG reviewed with Dr. Jalloh, cardiology. He agrees with the EKGs strongly suspicious for flutter. Recommended trial of adenosine to see if that can be confirmed. If this is flutter would be his 1st episode of any type of atrial fibrillation. Unknown how long he has been in the rhythm. Recommendation would then be to try to temp transfer to a facility where LIS and cardioversion can be done. Also recommend heparinization if flutter is confirmed. 1155pm with 6 mg of adenosine he had a brief pause that did show underlying atrial fibrillation. He quickly returned to the 2-1 flutter pattern. He is started on heparin We have contacted [facility], [facility], [facility], [facility] and [facility] none of which have telemetry beds available that might be able to help lis cardioversion tomorrow. We will continue to observe the patient in the emergency department until more appropriate discharge disposition can be arranged. We will continue antibiotics, monitor blood sugar we will have him on a diabetic diet until we have confirmation that he will be transferred and needs to be NPO prior to a LIS. Will add oral metoprolol 25 mg b.i.d. and hold both lisinopril and glipizide until renal function is obviously returning to baseline. Home med orders are placed Care is turned over to Dr Plunkett at change of shift <Sulema Plunkett, DO - Last Filed: 09/29/23 08:17> Lab Data Labs: Lab Results 09/28/23 09/28/23 09/28/23 Range/Units 18:15 20:10 22:22 WBC 11.0 (4.5-11.0) X10^3/uL RBC 4.46 L (4.5-5.9) X10^6/uL Hgb 13.2 L (13.5-17.5) g/dL Hct 39.5 L (41-53) % MCV 88.5 (80-100) fL MCH 29.7 (26-34) PG MCHC 33.5 (30-36) % RDW 13.9 (11.6-14.8) % Plt Count 216 (150-400) X10^3/uL Neut % (Auto) 79.2 H (50-75) % Lymph % (Auto) 8.1 L (25-40) % Boone % (Auto) 12.0 (3-14) % Eos % (Auto) 0.5 L (2-4) % Baso % (Auto) 0.2 (0-2) % Neut # (Auto) 8700 H (0661-1475) /uL Lymph # (Auto) 900 L (8021-5907) /uL Boone # (Auto) 1300 H (0-900) /uL Eos # (Auto) 100 (0-450) /uL Baso # (Auto) 0 (0-100) /uL PT 12.7 H (9.4-12.5) SECONDS INR 1.1 (0.9-1.3) APTT 30 (25.1-36.5) SECONDS D-Dimer 2131 H (<500) ng/ml Sodium 135 L (137-145) mmol/L Potassium 4.1 (3.4-5.1) mmol/L Chloride 97 L (98-107) mmol/L Carbon Dioxide 23 (22-32) mmol/L BUN 31 H (9-20) mg/dL Creatinine 1.63 H (0.66-1.25) mg/dL Estimated GFR 44 L (>60) mL/min BUN/Creatinine Ratio 19.0 (6-22) Glucose 160 H (80-110) mg/dL Hemoglobin A1c (4.0-6.0) % Lactate 2.3 H 2.2 H (0.7-2.1) mmol/L Calcium 9.2 (8.4-10.2) mg/dL Magnesium 1.9 (1.6-2.3) mg/dL Total Bilirubin 1.1 (0.2-1.3) mg/dL AST 56 (17-59) IU/L ALT 54 H (<50) IU/L Alkaline Phosphatase 87 (38-126) U/L Total Creatine Kinase 208 H (55-170) U/L Troponin I < 0.012 (0.01-0.034) ng/mL C-Reactive Protein (<1.0) mg/dL Total Protein 8.0 (6.3-8.2) g/dL Albumin 4.3 (3.5-5.0) g/dL Globulin 3.7 (1.7-4.1) g/dL Albumin/Globulin Ratio 1.2 (1.0-2.8) Lipase 30 (23-300) U/L Procalcitonin 0.64 H (<0.5) ng/mL TSH (0.47-4.68) uIU/mL Free T4 (0.78-2.19) ng/dL Urine RBC 0-1/hpf (0-5/HPF) Urine WBC None seen (0-5/HPF) Ur Squamous Epith Cells None seen (0-5/HPF) Urine Bacteria None seen (None) Ur Culture Indicated? Cult not indicated 09/28/23 09/29/23 09/29/23 Range/Units 23:05 00:07 03:30 WBC (4.5-11.0) X10^3/uL RBC (4.5-5.9) X10^6/uL Hgb (13.5-17.5) g/dL Hct (41-53) % MCV (80-100) fL MCH (26-34) PG MCHC (30-36) % RDW (11.6-14.8) % Plt Count (150-400) X10^3/uL Neut % (Auto) (50-75) % Lymph % (Auto) (25-40) % Boone % (Auto) (3-14) % Eos % (Auto) (2-4) % Baso % (Auto) (0-2) % Neut # (Auto) (6959-2981) /uL Lymph # (Auto) (2654-9598) /uL Boone # (Auto) (0-900) /uL Eos # (Auto) (0-450) /uL Baso # (Auto) (0-100) /uL PT (9.4-12.5) SECONDS INR (0.9-1.3) APTT 27 (25.1-36.5) SECONDS D-Dimer (<500) ng/ml Sodium (137-145) mmol/L Potassium (3.4-5.1) mmol/L Chloride (98-107) mmol/L Carbon Dioxide (22-32) mmol/L BUN (9-20) mg/dL Creatinine (0.66-1.25) mg/dL Estimated GFR (>60) mL/min BUN/Creatinine Ratio (6-22) Glucose (80-110) mg/dL Hemoglobin A1c (4.0-6.0) % Lactate 1.1 (0.7-2.1) mmol/L Calcium (8.4-10.2) mg/dL Magnesium (1.6-2.3) mg/dL Total Bilirubin (0.2-1.3) mg/dL AST (17-59) IU/L ALT (<50) IU/L Alkaline Phosphatase (38-126) U/L Total Creatine Kinase (55-170) U/L Troponin I < 0.012 (0.01-0.034) ng/mL C-Reactive Protein (<1.0) mg/dL Total Protein (6.3-8.2) g/dL Albumin (3.5-5.0) g/dL Globulin (1.7-4.1) g/dL Albumin/Globulin Ratio (1.0-2.8) Lipase (23-300) U/L Procalcitonin (<0.5) ng/mL TSH (0.47-4.68) uIU/mL Free T4 (0.78-2.19) ng/dL Urine RBC (0-5/HPF) Urine WBC (0-5/HPF) Ur Squamous Epith Cells (0-5/HPF) Urine Bacteria (None) Ur Culture Indicated? 09/29/23 09/29/23 09/30/23 Range/Units 06:16 10:16 04:38 WBC 7.4 (4.5-11.0) X10^3/uL RBC 3.79 L (4.5-5.9) X10^6/uL Hgb 11.4 L 11.4 L (13.5-17.5) g/dL Hct 33.0 L 34.1 L (41-53) % MCV 89.8 (80-100) fL MCH 30.1 (26-34) PG MCHC 33.5 (30-36) % RDW 14.0 (11.6-14.8) % Plt Count 202 205 (150-400) X10^3/uL Neut % (Auto) 53.9 D (50-75) % Lymph % (Auto) 30.4 D (25-40) % Boone % (Auto) 14.2 H (3-14) % Eos % (Auto) 1.2 L (2-4) % Baso % (Auto) 0.3 (0-2) % Neut # (Auto) 4000 (5485-4935) /uL Lymph # (Auto) 2200 (9567-2428) /uL Boone # (Auto) 1000 H (0-900) /uL Eos # (Auto) 100 (0-450) /uL Baso # (Auto) 0 (0-100) /uL PT (9.4-12.5) SECONDS INR (0.9-1.3) APTT 45 H D (25.1-36.5) SECONDS D-Dimer (<500) ng/ml Sodium 134 L 135 L (137-145) mmol/L Potassium 3.5 4.0 (3.4-5.1) mmol/L Chloride 101 101 (98-107) mmol/L Carbon Dioxide 25 27 (22-32) mmol/L BUN 21 H 19 (9-20) mg/dL Creatinine 0.96 0.82 (0.66-1.25) mg/dL Estimated GFR > 60 > 60 (>60) mL/min BUN/Creatinine Ratio 21.9 23.2 H (6-22) Glucose 223 H 134 H (80-110) mg/dL Hemoglobin A1c 6.6 H (4.0-6.0) % Lactate (0.7-2.1) mmol/L Calcium 8.4 8.4 (8.4-10.2) mg/dL Magnesium 2.1 (1.6-2.3) mg/dL Total Bilirubin (0.2-1.3) mg/dL AST (17-59) IU/L ALT (<50) IU/L Alkaline Phosphatase (38-126) U/L Total Creatine Kinase (55-170) U/L Troponin I (0.01-0.034) ng/mL C-Reactive Protein 23.0 H (<1.0) mg/dL Total Protein (6.3-8.2) g/dL Albumin (3.5-5.0) g/dL Globulin (1.7-4.1) g/dL Albumin/Globulin Ratio (1.0-2.8) Lipase (23-300) U/L Procalcitonin 0.32 0.18 (<0.5) ng/mL TSH 0.38 L (0.47-4.68) uIU/mL Free T4 1.52 (0.78-2.19) ng/dL Urine RBC (0-5/HPF) Urine WBC (0-5/HPF) Ur Squamous Epith Cells (0-5/HPF) Urine Bacteria (None) Ur Culture Indicated? 09/30/23 10/01/23 Range/Units 18:55 04:42 WBC 7.2 (4.5-11.0) X10^3/uL RBC 3.31 L (4.5-5.9) X10^6/uL Hgb 10.1 L (13.5-17.5) g/dL Hct 29.4 L (41-53) % MCV 88.9 (80-100) fL MCH 30.4 (26-34) PG MCHC 34.2 (30-36) % RDW 14.0 (11.6-14.8) % Plt Count 196 (150-400) X10^3/uL Neut % (Auto) 54.1 (50-75) % Lymph % (Auto) 30.3 (25-40) % Boone % (Auto) 13.6 (3-14) % Eos % (Auto) 1.7 L (2-4) % Baso % (Auto) 0.3 (0-2) % Neut # (Auto) 3900 (3209-9985) /uL Lymph # (Auto) 2200 (7914-0441) /uL Boone # (Auto) 1000 H (0-900) /uL Eos # (Auto) 100 (0-450) /uL Baso # (Auto) 0 (0-100) /uL PT (9.4-12.5) SECONDS INR (0.9-1.3) APTT (25.1-36.5) SECONDS D-Dimer (<500) ng/ml Sodium 133 L (137-145) mmol/L Potassium 3.9 (3.4-5.1) mmol/L Chloride 103 (98-107) mmol/L Carbon Dioxide 25 (22-32) mmol/L BUN 12 (9-20) mg/dL Creatinine 0.69 (0.66-1.25) mg/dL Estimated GFR > 60 (>60) mL/min BUN/Creatinine Ratio 17.4 (6-22) Glucose 154 H (80-110) mg/dL Hemoglobin A1c (4.0-6.0) % Lactate (0.7-2.1) mmol/L Calcium 8.4 (8.4-10.2) mg/dL Magnesium 1.7 (1.6-2.3) mg/dL Total Bilirubin (0.2-1.3) mg/dL AST (17-59) IU/L ALT (<50) IU/L Alkaline Phosphatase (38-126) U/L Total Creatine Kinase (55-170) U/L Troponin I < 0.012 (0.01-0.034) ng/mL C-Reactive Protein (<1.0) mg/dL Total Protein (6.3-8.2) g/dL Albumin (3.5-5.0) g/dL Globulin (1.7-4.1) g/dL Albumin/Globulin Ratio (1.0-2.8) Lipase (23-300) U/L Procalcitonin 0.13 (<0.5) ng/mL TSH (0.47-4.68) uIU/mL Free T4 (0.78-2.19) ng/dL Urine RBC (0-5/HPF) Urine WBC (0-5/HPF) Ur Squamous Epith Cells (0-5/HPF) Urine Bacteria (None) Ur Culture Indicated? Point of Care Testing Glucose POC 129 Urine Dip Bedside Urine Glucose Negative Bedside Urine Bilirubin - Negative Bedside Urine Ketone - Negative Bedside Urine Occult Blood +/- Bedside Urine pH 6 Bedside Urine Protein - Negative Bedside Urine Urobilinogen - Negative Bedside Urine Nitrite - Negative Bedside Urine Leukocytes - Negative Esterase Point of care testing: Point of Care Testing Glucose POC 129 Urine Dip Bedside Urine Glucose Negative Bedside Urine Bilirubin - Negative Bedside Urine Ketone - Negative Bedside Urine Occult Blood +/- Bedside Urine pH 6 Bedside Urine Protein - Negative Bedside Urine Urobilinogen - Negative Bedside Urine Nitrite - Negative Bedside Urine Leukocytes - Negative Esterase [facility] Narrative Medical decision making narrative: CC: Increasing pain and erythema around left knee wound, knee replacement on the 8th Complicating co-morbidities: Diabetes, hypertension, left knee replacement on the 8th. Data collected from: patient, Differential considered: Sepsis, PE, postoperative infection, pulmonary atelectasis, urinary tract infection, wound infection Exam documented above, pertinent findings include: Persistent tachycardia even after a L of fluid. Decreased perfusion in the right lower extremity and difficult to tell them left due to swelling postop. He has bulla developing around the wound secondary to dressing but the wound itself looks like it is healing nicely. Lab Test results independently reviewed as above. Pertinent findings: CBC shows no significant leukocytosis however neutrophils are slightly elevated at 79.2. Not significantly anemic D-dimer is significantly elevated to 2131. Given the tachycardia with which he presents this is concerning enough even knowing that he is [address] postop that a CT angiogram has been ordered Chemistries demonstrate a moderate bumped to creatinine from 0.9-1.63. GFR is down to 44. Lactic was slightly elevated at 2.3. With no fluid resuscitation it was down to 2.2 creatinine kinase is slightly elevated consistent with recent surgery. Troponin is undetectable Procalcitonin is slightly elevated at 0.64 AM labs Slight decrease in H&H. Hemoglobin has gone from 13.2 to 11.4 Repeat troponin is undetectable Independently reviewed EKG: Sinus tachycardia at a rate of 122. Nonspecific STT wave abnormalities In light of the fact that his heart rate is staying almost exactly at 122 despite additional interventions and reviewing the EKG I am wondering if he actually might be in a two-to-one flutter. Around 5:30 a.m. heart rate significantly lowered. Suspect he converted from atrial flutter to sinus tachycardia. 6:30 EKG shows sinus tachycardia at a rate of 110 clearly now in sinus rhythm Imaging studies independently reviewed: Chest x-ray does not suggest significant volume overload. No acute abnormalities CT angiogram as interpreted by Radiology: IMPRESSION: There is no acute pulmonary embolism. Mild bibasilar opacities likely representing aspiration/bronchitis and atelectasis. Consider future imaging surveillance to assess for resolution. Ill-defined sclerosis of the vertebral bodies is indeterminate, correlate with any history of malignancy such as discussed Prostate. Treatments: Bladder scan shows almost 500 cc postvoid. He does have a history of bladder cancer with prostatectomy in 2013. Albarran catheter will be placed. Discussion: 73-year-old gentleman 3 days postop left knee replacement with acute kidney injury, dehydration, bladder outlet obstruction with acute urinary retention, persistent tachycardia unexplained, probable bilateral atelectasis and will benefit from incentive spirometer. Of note, patient does have a history of prostate cancer and the ?ill-defined sclerosis of vertebral bodies should have further evaluation This time I do not think that his surgical site is infected. He does have bulla around the wound secondary to tape and elastic allergy. These are not infected. A Telfa pad and Kerlix gauze was used to cover the wound. There was initial concern for infection and he was started on Zosyn. After further evaluation he does not have significant leukocytosis, does not have a urinary tract infection, does not appear to have a skin infection, I do not think that his wound is infected. I believe the pulmonary atelectasis is simply postsurgical atelectasis. We will discuss continued antibiotics with the admitting hospitalist Service. We will recommend admission due to acute kidney injury, dehydration, acute urinary retention and persistent tachycardia with bibasilar atelectasis. Will ask for incentive spirometry. CT scan does not suggest acute pulmonary embolism 1105pm discussed admission with hospitalist. With concern for possible new atrial fibrillation with 2-1 flutter his request was to review with Cardiology before we accept him into our hospital. Acoustical Logging Engineer has been paged. 11:15 case and EKG reviewed with Dr. Jalloh, cardiology. He agrees with the EKGs strongly suspicious for flutter. Recommended trial of adenosine to see if that can be confirmed. If this is flutter would be his 1st episode of any type of atrial fibrillation. Unknown how long he has been in the rhythm. Recommendation would then be to try to temp transfer to a facility where LIS and cardioversion can be done. Also recommend heparinization if flutter is confirmed. 1155pm with 6 mg of adenosine he had a brief pause that did show underlying atrial fibrillation. He quickly returned to the 2-1 flutter pattern. He is started on heparin We have contacted [facility], [facility], [facility], [facility], [facility] and [facility] none of which have telemetry beds available that might be able to help lis cardioversion tomorrow. We will continue to observe the patient in the emergency department until more appropriate discharge disposition can be arranged. We will continue antibiotics, monitor blood sugar we will have him on a diabetic diet until we have confirmation that he will be transferred and needs to be NPO prior to a LIS. Will add oral metoprolol 25 mg b.i.d. and hold both lisinopril and glipizide until renal function is obviously returning to baseline. Home med orders are placed Care is turned over to Dr Plunkett at change of shift 09/29/23 Dimitrios: Patient signed out to myself seen and independently evaluated. Patient appears to be in sinus tach based on most recent EKG this morning at 6:30 a.m. as well as telemetry. Patient is hypertensive but has not had all his medications appears to have acute kidney injury with some bladder outlet obstruction had improvement of his urinary retention after Albarran catheter was placed. Patient's was covered for potential infection his postop incision for his knee but suspected to be more reaction than actual infection. Plan was for transfer for LIS but as patient does not currently require cardioversion a re- contact Cardiology. Spoke with Dr. Palacio, [facility] Cardiology: Reviewed patient's case, he reviewed all if patient's EKGs he is more suspicious that this was sinus tach a long although discussed patient was at a heart rate of 1 8:24 p.m. despite 2 L of fluid resuscitation. He recommends stopping heparin at this point is clearly in sinus rhythm this morning. Recommends beta aram to be continued with oral metoprolol and evaluation for why patient still has sinus tachycardia. Patient currently on heparin, metoprolol being given this am. Slightly hypertensive. Spoke with Dr. Hurtado, hospitalist who accepts for admission reviewed recommendations from Cardiology. Does ask for us to contact Orthopedic surgery for evaluation of knee and management as needed. Dr. Gong, orthopedic surgery recommends can stop zosyn, oxycodone/tylenol for pain, dvt prophylaxis but ever preferred by hospitalist, continue range of motion and weight-bearing as tolerated. States that she will see patient for consultation but states that knee appears to be normal post-operative changes. Discharge Plan Departure Patient Disposition: Admitted as Observation Clinical Impression: Atrial fibrillation and flutter, Acute kidney injury, Acute urinary retention, Atelectasis of both lungs Admit Date/Time: 10/01/23 13:29 Admit Provider: Jesus Hurtado
[2023-09-28] MEDS: LIDOCAINE 2% (GLYDO) 6 ML GEL TOP (21:50)
[2023-09-28 22:34] LABS: Bacteria Urine None Seen; Culture Indicated Urine Cult Not Indicated; RBC Urine 0-1/HPF (0-5/HPF); Squamous Epithelial Cell Urine None Seen (0-5/HPF); WBC Urine None Seen (0-5/HPF)
[2023-09-28 23:20] LABS: Lactate (Lactic Acid) 1.1 mmol/L (0.7-2.1)
[2023-09-28] MEDS: ADENOSINE 6 MG/2 ML VIAL IV (23:37)
--- NOTE | 2023-09-28 23:40 | PC.NURSE ---
2337: ED Md Painter, lithopone charger Lydia and this Rn at bedside to push adenosine. Pt is hooked up to EKG and has been educated on the procedure.Pt tolerated procedure well and VS remained stable. Pt was A&Ox4 during entire procedure.
[2023-09-29] VITALS (27 sets, daily range): BP systolic 139–200; BP diastolic 72–95; PULSE 91–126; RESP 16–22; TEMP 36.4–37.3; O2SAT 93–99; BMI 22.0
[2023-09-29] MEDS: HEPARIN 5,000 UNIT/ML VIAL 5250 UNIT IV (00:14)
--- NOTE | 2023-09-29 00:15 | PC.NURSE ---
Patient is on the wait list at [facility] and [facility] for a transfer bed. [facility] and [facility] all declines due to lack of beds.
[2023-09-29] MEDS: HEPARIN DRIP 25,000 UNIT/500 ML IV.SOLN 23.678 UNIT IV (00:18)
[2023-09-29 00:34] LABS: PTT Partial Thromboplastin Tim 27 SECONDS (25.1-36.5)
--- NOTE | 2023-09-29 00:49 | PC.NURSE ---
Pt will be staying while looking for placement at higher level of care, moved to room 12 in ED at this time, remains on monitors.
[2023-09-29] MEDS: METOPROLOL IR 25 MG TABLET PO ×5 (00:59→20:20)
[2023-09-29] MEDS: PIPERACILLIN/TAZO 3.375 GM in SODIUM CHLORIDE 0.9% 100 ML IV (01:30)
[2023-09-29 04:12] LABS: Troponin I < 0.012 ng/mL (0.01-0.034)
[2023-09-29 06:27] LABS: Hemoglobin 11.4 g/dL (13.5-17.5); Platelet Count 202 X10^3/uL (150-400)
[2023-09-29 06:33] LABS: PTT Partial Thromboplastin Tim 45 SECONDS (25.1-36.5)
--- NOTE | 2023-09-29 07:08 | DI.ECHO.S_ITS ---
[facility]---------+ [facility] +---------+ : : [address] : : : : [id number] : : : : Phone: [phone]+ Echocardiogram Report + + :Name: AMAURY MEDINA Study Date: 09/29/2023 Height: 69 in : :[facility] ReadingLocation: Weight: 149 lb : : Gender: Male BSA: 1.8 m2 : :: 1950 Age: 73 yrs BP: 159/78 mmHg: :Reason For Study: Arrhythmia, PACs : : Performed By: Laurel Hernandez : :Referring: GATO OSULLIVAN : + + Interpretation Summary The ejection fraction is estimated to be 60-65%. There is mild to moderate mitral regurgitation. The right ventricular systolic pressure is estimated to be at least 25 mmHg based on an estimated right atrial pressure of 3 mm Hg. Procedure: A two-dimensional transthoracic echocardiogram with color flow and Doppler was performed. The study quality was technically adequate. Comparison is made with the echocardiogram of 11-15-06. The heart rate ranged between 96-98 bpm during the study. Left Ventricle: The left ventricle is normal in size and wall thickness. The ejection fraction is estimated to be 60-65%. Left ventricular wall motion is normal. Diastolic function could not be accurately assessed due to tachycardia. Right Ventricle: The right ventricle grossly appears normal in size with probable normal systolic function. Atria: The left atrial size is normal. Right atrial size is normal. The interatrial septum grossly appears intact with no obvious evidence for an atrial septal defect. Mitral Valve: The mitral valve leaflets appear borderline thickened, but open well. There is mild to moderate mitral regurgitation. Aortic Valve: The aortic valve opens well. No aortic regurgitation is present. Tricuspid Valve: The tricuspid valve leaflets are thin and pliable. The tricuspid valve leaflets are thickened and/or calcified, but open well. There is a trace or physiologic amount of tricuspid regurgitation. The right ventricular systolic pressure is estimated to be at least 25 mmHg based on an estimated right atrial pressure of 3 mm Hg. Pulmonic Valve: The pulmonic valve is not well visualized. There is no pulmonic valvular regurgitation. Great Vessels: The aortic root is normal size. The ascending aorta is normal in size. The aortic arch is normal in size. The IVC is of normal diameter and collapses greater than 50% with a sniff. This suggests a low right atrial pressure of 3 mm Hg. Pericardium/ Pleura There is no pericardial effusion. There is no pleural effusion. MMode/2D Measurements & Calculations LVIDd: 4.7 cm LVOT diam: 2.1 cm LVIDs: 2.9 cm Ao root diam: 3.6 cm FS: 38.9 % asc Aorta Diam: 3.5 cm EPSS: 0.61 cm Ao Arch Diam (Prox Trans): 2.9 cm IVSd: 1.1 cm LVPWd: 0.79 cm LV greene. diameter/BSA (cm/m^2): 2.6 LV sys. diameter/BSA (cm/m^2): 1.6 LA A2 area: 16.9 cm2 RA long axis: 4.1 cm LA A4 area: 14.1 cm2 RA area: 12.3 cm2 LA length (vol): 4.3 cm RA vol: 31.3 ml LA vol: 47.5 ml RA : 17.2 ml/m2 LA vol index: 26.1 ml/m2 IVC diam: 1.8 cm RVD1 (basal): 2.7 cm Doppler Measurements & Calculations Ao V2 max: 155.2 cm/sec LVOT Max Tavares: 112.8 cm/sec Ao V2 mean: 106.6 cm/sec LV V1 max P.1 mmHg Ao max P.6 mmHg LV V1 VTI: 21.3 cm Ao mean P.1 mmHg JILLIAN(I,D): 2.4 cm2 Ao V2 VTI: 30.4 cm JILLIAN(V,D): 2.5 cm2 sev ratio: 0.70 JILLIAN indexed to BSA (cm^2/m^2): 1.3 MV E max tavares: 95.4 cm/sec TR max tavares: 233.1 cm/sec MV A max tavares: 135.2 cm/sec TR max P.7 mmHg MV E/A: 0.71 PA V2 max: 98.0 cm/sec Med Peak E' Tavares: 7.1 cm/sec PA V2 mean: 70.5 cm/sec E/E' med: 13.3 PA mean P.3 mmHg Lat Peak E' Tavares: 8.9 cm/sec E/E' lat: 10.7 E/e' average: 12.0 MV dec time: 0.20 sec SV(LVOT): 74.1 ml Reading Physician:12:00 PM
[2023-09-29] MEDS: ACETAMINOPHEN 325 MG TABLET 975 MG PO ×2 (08:02→23:23)
--- NOTE | 2023-09-29 08:32 | DI.RAD.S_ITS ---
PROCEDURE: XR KNEE LT 1TO2V INDICATIONS: knee pain postop TECHNIQUE: 2 view(s) of the knee acquired. COMPARISON: None. FINDINGS: Bones: Patient is status post knee joint arthroplasty. Hardware components are in expected positions. Visualized bony structures are intact. Soft tissues: Overlying postoperative changes are noted. Prepatellar soft tissue swelling. IMPRESSION: Expected post-operative appearance of a knee arthroplasty. Dictated by: Emmie King MD, PhD on 09/29/2023 at 9:22 Approved by: Emmie King MD, PhD on 09/29/2023 at 9:23
[2023-09-29] MEDS: MAGNESIUM SULFATE 2 GM/50 ML PIGGYBACK IV (10:03)
[2023-09-29] MEDS: HEPARIN 5,000 UNIT/ML VIAL 5000 UNIT SUBCUT ×2 (10:10→20:20)
[2023-09-29] MEDS: lisinopriL 10 MG TABLET PO (10:16)
[2023-09-29] MEDS: SODIUM CHLORIDE 0.9% 1,000 ML 100 ML IV ×2 (10:18→11:30)
[2023-09-29 11:04] LABS: Hemoglobin A1C% w Est Avg Glu 6.6 % (4.0-6.0)
[2023-09-29 11:10] LABS: BUN Creatinine Ratio 21.9 (6-22); Blood Urea Nitrogen 21 mg/dL (9-20); Calcium 8.4 mg/dL (8.4-10.2); Carbon Dioxide 25 mmol/L (22-32); Chloride 101 mmol/L (98-107); Estimated Glomerular Filt Rate > 60 mL/min (>60); Glucose 223 mg/dL (80-110); HEMOLYSIS < 15 (0-50); Potassium 3.5 mmol/L (3.4-5.1); Sodium 134 mmol/L (137-145)
[2023-09-29 11:26] LABS: Procalcitonin 0.32 ng/mL (<0.5)
[2023-09-29] MEDS: OXYCODONE IR 5 MG TABLET PO ×3 (11:29→20:20)
[2023-09-29 11:40] LABS: TSH w/ Reflex to FT4 0.38 uIU/mL (0.47-4.68)
[2023-09-29 12:04] LABS: Free T4, Direct Thyroxine 1.52 ng/dL (0.78-2.19)
[2023-09-29] MEDS: POTASSIUM CHLORIDE 20 MEQ TAB 40 MEQ PO (13:03)
[2023-09-29] MEDS: INSULIN LISPRO 100 UNIT/ML 3ML VIAL SUBCUT (13:04)
--- NOTE | 2023-09-29 15:11 | PM.CN ---
History of Present Illness Consult details Date Patient Seen: 09/29/23 Time Patient Seen: 15:11 Chief complaint: sent for rapid heartrate Reason for consult: recent total knee arthroplasty Narrative: Juliana is a 73 yo gentleman who underwent outpatient LEFT total knee arthroplasty by Dr Adalgisa Gong at the [facility] on September 25, 2023. He was seen in our office yesterday afternoon for incision concerns and was found to be tachycardic and weak; he was sent to the ED. Workup was negative for both ACS and PE. He was found to have a flutter with underlying a fib during the evening, and plans were being made for transfer and cardioversion, but by this morning he had converted to sinus rhythm. He was admitted to the hospital service and Dr Gong was consulted for management of his acutely post-op knee. He had an echocardiogram today which appears to be WNL. He remains tachycardic and is receiving metoprolol. He is also slightly hypotensive. Meds Home Medications and Allergies Home Medications Medication Instructions Recorded Confirmed Type lisinopril 10 mg tablet 10 mg PO DAILY 02/24/22 05/18/22 History metformin 500 mg tablet 2,000 mg PO DAILY 02/24/22 05/18/22 History rizatriptan 5 mg tablet See Rx Instructions PO .COMPLEX 02/24/22 05/18/22 History glipizide 10 mg tablet, extended 10 mg PO DAILY 09/28/23 09/28/23 History release 24 hr Allergies Allergy/AdvReac Type Severity Reaction Status Date / Time No Known Drug Allergies Allergy Verified 09/28/23 19:16 Review of Systems Review of Systems Narrative: No outstanding issues other than noted in HPI. Exam Vital Signs (past 8 hours): - 09/29/23 07:30 09/29/23 07:45 09/29/23 08:00 Temperature Pulse Rate 109 H 110 H Respiratory Rate 18 20 Blood Pressure 189/80 H Pulse Oximetry 96 97 Oxygen Delivery Method 09/29/23 08:00 09/29/23 08:15 09/29/23 08:30 Temperature Pulse Rate 114 H 122 H 102 H Respiratory Rate 19 21 17 Blood Pressure Pulse Oximetry 97 Oxygen Delivery Method 09/29/23 09:10 09/29/23 09:10 09/29/23 10:16 Temperature Pulse Rate 96 H 100 H Respiratory Rate Blood Pressure 160/76 H 159/78 H Pulse Oximetry 95 Oxygen Delivery Method Room Air 09/29/23 10:52 Temperature 97.9 F Pulse Rate 100 H Respiratory Rate 20 Blood Pressure 159/79 H Pulse Oximetry 95 Oxygen Delivery Method Oxygen Delivery Method Room Air Oxygen Flow Rate 2 Narrative Exam Narrative: There is some blistering behind the knee and medial to the distal portion of the incision. This does not appear to follow the pattern of any adhesive used during or after surgery; pt and spouse think it may be related to antiseptic used in surgery. Incision is benign in appearance; there is a moderate amount of erythema that appears to be hematoma. There is a sizeable area of ecchymosis on the back of the thigh. 5/5 strength in hip flexors, quadriceps, hamstrings, DF, PF, EHL on left. Sensation to light touch intact throughout LLE, calf soft and compressible. Incision redressed with Telfa and kerlix. Objective Labs 09/29/23 06:16 09/29/23 10:16 Labs: Laboratory Results - last 24 hr 09/28/23 09/28/23 09/28/23 18:15 20:10 22:22 WBC 11.0 RBC 4.46 L Hgb 13.2 L Hct 39.5 L MCV 88.5 MCH 29.7 MCHC 33.5 RDW 13.9 Plt Count 216 Neut % (Auto) 79.2 H Lymph % (Auto) 8.1 L [place] % (Auto) 12.0 Eos % (Auto) 0.5 L Baso % (Auto) 0.2 Neut # (Auto) 8700 H Lymph # (Auto) 900 L [place] # (Auto) 1300 H Eos # (Auto) 100 Baso # (Auto) 0 PT 12.7 H INR 1.1 APTT 30 D-Dimer 2131 H Sodium 135 L Potassium 4.1 Chloride 97 L Carbon Dioxide 23 BUN 31 H Creatinine 1.63 H Estimated GFR 44 L BUN/Creatinine Ratio 19.0 Glucose 160 H Hemoglobin A1c Lactate 2.3 H 2.2 H Calcium 9.2 Magnesium 1.9 Total Bilirubin 1.1 AST 56 ALT 54 H Alkaline Phosphatase 87 Total Creatine Kinase 208 H Troponin I < 0.012 C-Reactive Protein Total Protein 8.0 Albumin 4.3 Globulin 3.7 Albumin/Globulin Ratio 1.2 Lipase 30 Procalcitonin 0.64 H TSH Free T4 Urine RBC 0-1/hpf Urine WBC None seen Ur Squamous Epith Cells None seen Urine Bacteria None seen Ur Culture Indicated? Cult not indicated 09/28/23 09/29/23 09/29/23 23:05 00:07 03:30 WBC RBC Hgb Hct MCV MCH MCHC RDW Plt Count Neut % (Auto) Lymph % (Auto) [place] % (Auto) Eos % (Auto) Baso % (Auto) Neut # (Auto) Lymph # (Auto) [place] # (Auto) Eos # (Auto) Baso # (Auto) PT INR APTT 27 D-Dimer Sodium Potassium Chloride Carbon Dioxide BUN Creatinine Estimated GFR BUN/Creatinine Ratio Glucose Hemoglobin A1c Lactate 1.1 Calcium Magnesium Total Bilirubin AST ALT Alkaline Phosphatase Total Creatine Kinase Troponin I < 0.012 C-Reactive Protein Total Protein Albumin Globulin Albumin/Globulin Ratio Lipase Procalcitonin TSH Free T4 Urine RBC Urine WBC Ur Squamous Epith Cells Urine Bacteria Ur Culture Indicated? 09/29/23 09/29/23 06:16 10:16 WBC RBC Hgb 11.4 L Hct 33.0 L MCV MCH MCHC RDW Plt Count 202 Neut % (Auto) Lymph % (Auto) [place] % (Auto) Eos % (Auto) Baso % (Auto) Neut # (Auto) Lymph # (Auto) [place] # (Auto) Eos # (Auto) Baso # (Auto) PT INR APTT 45 H D D-Dimer Sodium 134 L Potassium 3.5 Chloride 101 Carbon Dioxide 25 BUN 21 H Creatinine 0.96 Estimated GFR > 60 BUN/Creatinine Ratio 21.9 Glucose 223 H Hemoglobin A1c 6.6 H Lactate Calcium 8.4 Magnesium Total Bilirubin AST ALT Alkaline Phosphatase Total Creatine Kinase Troponin I C-Reactive Protein 23.0 H Total Protein Albumin Globulin Albumin/Globulin Ratio Lipase Procalcitonin 0.32 TSH 0.38 L Free T4 1.52 Urine RBC Urine WBC Ur Squamous Epith Cells Urine Bacteria Ur Culture Indicated? [facility] Medical History (Updated 09/29/23 @ 04:49 by Valorie Painter MD) Hypertension Diabetes Tobacco & Substance Use Smoking Status: Never smoker Assessment & Plan Assessment and plan (1) Total knee replacement status: Status: Acute Plan: POD #4 s/p left total knee arthroplasty w/ new onset of tachyarrhythmia. Suspicion of knee infection is very low; no antibiotics indicated at this time. Blood cultures pending. Will continue to follow. Pt can resume PT/OT; will order. Pt currently receiving heparin for VTE prophylaxis. Appreciate ED and hospitalist workup of cardiac issue.
--- NOTE | 2023-09-29 18:09 | PC.NURSE ---
Patient is A&OX4, arrived to room 223 at 0930. VSS, afebrile on RA. He is able to ambulate with FWW to BR with limp. He reports pain to L knee up to 6/10 pain with ambulating but not so bad at 5/10 while lying. His spoouse brought in ice machine from home to ice his knee. Hospitalist and Ortho PA at bedside this evening. He remains NSR to sinus tachycardia on telemetry. Continuous monitoring.
--- NOTE | 2023-09-29 18:14 | P.HP_ITS ---
History of Present Illness History of Present Illness Date Patient Seen: 09/29/23 Chief complaint: sent for rapid heartrate Narrative: Juliana Talamantes is a 73yo M with PMH of 4 days post-op for L total knee replacement, prostate cancer s/p prostatectomy, HTN and DM2 who presents with tachycardia, urinary retention and L knee pain. Patient was initially seen in ortho clinic for follow-up for blistering around the bandage on his L knee from a skin eruption. He was found to be tachycardic at rest so was sent to the ED. EKG showed possible A-flutter. Cardiology called and recommended adenosine which he was given. Repeat EKG then showed sinus tach. Cardiology recommended admission for echo and metoprolol. Patient states he has no history of heart issues. He mainly has pain in his left knee. He also notes that he couldn't urinate in the ED so a mejia was placed. He denies CP, SOB, NV, palpitations, abd pain or diarrhea. [facility] Medical History (Updated 09/29/23 @ 04:49 by Valorie Painter MD) Hypertension Diabetes Social History household members: spouse Smoking Status: Never smoker alcohol intake: current Meds Home Medications and Allergies Home Medications Medication Instructions Recorded Confirmed Type lisinopril 10 mg tablet 10 mg PO DAILY 02/24/22 09/29/23 History metformin 500 mg tablet 2,000 mg PO DAILY 02/24/22 09/29/23 History rizatriptan 5 mg tablet See Rx Instructions PO .COMPLEX 02/24/22 09/29/23 History glipizide 10 mg tablet, extended 10 mg PO DAILY 09/28/23 09/29/23 History release 24 hr aspirin 1 tab BID blood clot prevention 09/29/23 09/29/23 History oxycodone 5 mg tablet 5 - 10 mg PO [id number] Pain 09/29/23 09/29/23 History Allergies Allergy/AdvReac Type Severity Reaction Status Date / Time No Known Drug Allergies Allergy Verified 09/28/23 19:16 Review of Systems Review of Systems Narrative: All other systems reviewed with the patient and are negative unless otherwise stated. Exam Vital Signs (past 8 hours): - 09/29/23 10:16 09/29/23 10:52 09/29/23 14:00 Temperature 97.9 F 97.6 F Pulse Rate 100 H 100 H 110 H Respiratory Rate 20 20 Blood Pressure 159/78 H 159/79 H 139/72 Pulse Oximetry 95 95 09/29/23 16:52 Temperature 98.0 F Pulse Rate 91 H Respiratory Rate 18 Blood Pressure 172/93 H Pulse Oximetry 97 Oxygen Delivery Method Room Air Oxygen Flow Rate 2 Narrative Exam Narrative: GEN: no acute distress HEENT: moist mucous membranes, PERRL NECK: trachea midline, no JVD CV: regular rate and rhythm, no murmurs PULM: clear bilaterally ABD: soft, nontender, nondistended, no organomegaly EXT: warm and well perfused with no edema, L knee wrapped NEURO: awake, alert, oriented, no focal deficits Objective Labs 09/29/23 06:16 09/29/23 10:16 Labs: Laboratory Results - last 24 hr 09/28/23 09/28/23 09/28/23 18:15 20:10 22:22 WBC 11.0 RBC 4.46 L Hgb 13.2 L Hct 39.5 L MCV 88.5 MCH 29.7 MCHC 33.5 RDW 13.9 Plt Count 216 Neut % (Auto) 79.2 H Lymph % (Auto) 8.1 L [place] % (Auto) 12.0 Eos % (Auto) 0.5 L Baso % (Auto) 0.2 Neut # (Auto) 8700 H Lymph # (Auto) 900 L [place] # (Auto) 1300 H Eos # (Auto) 100 Baso # (Auto) 0 PT 12.7 H INR 1.1 APTT 30 D-Dimer 2131 H Sodium 135 L Potassium 4.1 Chloride 97 L Carbon Dioxide 23 BUN 31 H Creatinine 1.63 H Estimated GFR 44 L BUN/Creatinine Ratio 19.0 Glucose 160 H Hemoglobin A1c Lactate 2.3 H 2.2 H Calcium 9.2 Magnesium 1.9 Total Bilirubin 1.1 AST 56 ALT 54 H Alkaline Phosphatase 87 Total Creatine Kinase 208 H Troponin I < 0.012 C-Reactive Protein Total Protein 8.0 Albumin 4.3 Globulin 3.7 Albumin/Globulin Ratio 1.2 Lipase 30 Procalcitonin 0.64 H TSH Free T4 Urine RBC 0-1/hpf Urine WBC None seen Ur Squamous Epith Cells None seen Urine Bacteria None seen Ur Culture Indicated? Cult not indicated 09/28/23 09/29/23 09/29/23 23:05 00:07 03:30 WBC RBC Hgb Hct MCV MCH MCHC RDW Plt Count Neut % (Auto) Lymph % (Auto) [place] % (Auto) Eos % (Auto) Baso % (Auto) Neut # (Auto) Lymph # (Auto) [place] # (Auto) Eos # (Auto) Baso # (Auto) PT INR APTT 27 D-Dimer Sodium Potassium Chloride Carbon Dioxide BUN Creatinine Estimated GFR BUN/Creatinine Ratio Glucose Hemoglobin A1c Lactate 1.1 Calcium Magnesium Total Bilirubin AST ALT Alkaline Phosphatase Total Creatine Kinase Troponin I < 0.012 C-Reactive Protein Total Protein Albumin Globulin Albumin/Globulin Ratio Lipase Procalcitonin TSH Free T4 Urine RBC Urine WBC Ur Squamous Epith Cells Urine Bacteria Ur Culture Indicated? 09/29/23 09/29/23 06:16 10:16 WBC RBC Hgb 11.4 L Hct 33.0 L MCV MCH MCHC RDW Plt Count 202 Neut % (Auto) Lymph % (Auto) [place] % (Auto) Eos % (Auto) Baso % (Auto) Neut # (Auto) Lymph # (Auto) [place] # (Auto) Eos # (Auto) Baso # (Auto) PT INR APTT 45 H D D-Dimer Sodium 134 L Potassium 3.5 Chloride 101 Carbon Dioxide 25 BUN 21 H Creatinine 0.96 Estimated GFR > 60 BUN/Creatinine Ratio 21.9 Glucose 223 H Hemoglobin A1c 6.6 H Lactate Calcium 8.4 Magnesium Total Bilirubin AST ALT Alkaline Phosphatase Total Creatine Kinase Troponin I C-Reactive Protein 23.0 H Total Protein Albumin Globulin Albumin/Globulin Ratio Lipase Procalcitonin 0.32 TSH 0.38 L Free T4 1.52 Urine RBC Urine WBC Ur Squamous Epith Cells Urine Bacteria Ur Culture Indicated? Assessment & Plan Assessment & Plan narrative: # possible A-flutter vs sinus tach -patient's EKG suspicious for A-flutter per Dr. Jalloh cardiology, adenosine given in ED without much effect -Dr. Palacio also reviewed and thought was more likely sinus tach -received metoprolol 25mg q6h and still tachy, will uptitrate to 50mg -should have outpatient zio patch arranged -echo with EF 60-65%, mild-mod MR, RVSP 25 -tele -repeat EKG in AM and if A-flutter should discuss DOAC with patient given [id number] of 2 # left knee pain -initially concern in ED for infection, abx given -ortho consulted and did not think infection present, said pain is expected 4 days post-op -abx stopped -PT eval # ROSALINDA secondary to urinary retention -mejia placed in ED due to unable to fully void -Cr initially 1.63, now normalized -patient has h/o of prostatectomy due to prostate cancer -will need voiding trial prior to discharge # HTN -continue lisinopril # DM2 -SSI -hold metformin -A1c 6.6% Code status is full code. DVT prophylaxis with heparin. Proxy is saul Chan. I have reviewed home meds and used all available resources to reconcile the home meds. Case discussed with ED physician/APC and patient will be admitted to the hospitalist service for further workup and management. This patient will be admitted as observation and will require less than 2 midnights of hospital time.
[2023-09-30] VITALS (19 sets, daily range): BP systolic 151–190; BP diastolic 80–102; PULSE 80–102; RESP 15–20; TEMP 35.9–36.9; O2SAT 94–100
[2023-09-30] MEDS: OXYCODONE IR 5 MG TABLET PO ×4 (00:15→18:03)
[2023-09-30] MEDS: METOPROLOL IR 25 MG TABLET 50 MG PO ×4 (00:15→17:02)
[2023-09-30 05:16] LABS: Add Manual Diff / Slide Review NO; Basophils Absolute Auto 0 /uL (0-100); Basophils Percent Auto 0.3 % (0-2); Eosinophils Absolute Auto 100 /uL (0-450); Eosinophils Percent Auto 1.2 % (2-4); Hematocrit 34.1 % (41-53); Hemoglobin 11.4 g/dL (13.5-17.5); Lymphocytes Absolute Auto 2200 /uL (1100-4500); Lymphocytes Percent Auto 30.4 % (25-40); Mean Corpuscular HGB Conc 33.5 % (30-36); Mean Corpuscular Hemoglobin 30.1 PG (26-34); Mean Corpuscular Volume 89.8 fL (80-100); Monocytes Absolute Auto 1000 /uL (0-900); Monocytes Percent Auto 14.2 % (3-14); Neutrophils Absolute Auto 4000 /uL (1500-7000); Neutrophils Percent Auto 53.9 % (50-75); Platelet Count 205 X10^3/uL (150-400); Red Blood Cell Count 3.79 X10^6/uL (4.5-5.9); White Blood Cell Count 7.4 X10^3/uL (4.5-11.0)
[2023-09-30 05:22] LABS: BUN Creatinine Ratio 23.2 (6-22); Blood Urea Nitrogen 19 mg/dL (9-20); Calcium 8.4 mg/dL (8.4-10.2); Carbon Dioxide 27 mmol/L (22-32); Chloride 101 mmol/L (98-107); Estimated Glomerular Filt Rate > 60 mL/min (>60); Glucose 134 mg/dL (80-110); HEMOLYSIS < 15 (0-50); Sodium 135 mmol/L (137-145)
[2023-09-30 05:23] LABS: Magnesium 2.1 mg/dL (1.6-2.3)
[2023-09-30 05:39] LABS: Procalcitonin 0.18 ng/mL (<0.5)
--- NOTE | 2023-09-30 06:12 | RT ---
This RT attempted to do EKG on pt per provider order. The pt refused, stating can you come back later Nursing staff at bedside.
[2023-09-30] MEDS: OXYCODONE IR 10 MG TABLET PO ×4 (07:58→19:28)
[2023-09-30] MEDS: HEPARIN 5,000 UNIT/ML VIAL 5000 UNIT SUBCUT ×2 (08:00→21:38)
[2023-09-30] MEDS: lisinopriL 10 MG TABLET PO (08:00)
--- NOTE | 2023-09-30 08:16 | PM.PN.1 ---
Subjective Subjective Interval history: Juliana is a pleasent 73 year old male who is POD#5 s/p a L TKA with Dr. Gong. Patient was admitted to the hospital yesterday after new onset of tachyarythmia, hypertension and feelings of near syncope. He also did have urinary retention on presentation, he has a history of a prostatectomy but had not previously required Flomax. He has had frequency in the past but no problems with retention to his knowledge. Still has mejia in place but states he does feel the urge to pee. Cardiac workup has revealed a reassuring echocardiogram and CTA, multiple EKGs with inconsistent conclusions, currently being treated with BB for tachyarythmia. Patient states today he is feeling okay, knee pain is rated at 5/10 and states it is slightly worse than last night but overall better than when he first came to the hospital. Has been using ice machine consistently with good improvement in pain. States he feels like he can ambulate safely with walker, is slow d/t pain however. Has family at home to help with his post op care. Patient expresses desire to be d/c to home today. Denies fever, chills, chest pain, SOB, cough, light headedness, headache, nausea, vomiting. Exam Vital Signs (past 8 hours): - 09/30/23 00:17 09/30/23 06:00 09/30/23 06:56 Temperature 98.0 F 97.8 F Pulse Rate 102 H 80 Respiratory Rate 16 15 Blood Pressure 174/87 H 180/87 H 152/82 H Pulse Oximetry 96 100 Oxygen Flow Rate 0 09/30/23 08:00 09/30/23 08:07 Temperature 98.4 F Pulse Rate 92 H 98 H Respiratory Rate 19 Blood Pressure 184/96 H 166/93 H Pulse Oximetry 96 Oxygen Flow Rate 0 Oxygen Delivery Method Room Air Oxygen Flow Rate 0 Narrative Exam Narrative: Sensation intact to all toes bilaterally. 5/5 strength with dorsi and plantar flexion bilaterally. Left knee resting in 5 degrees flexion. Telfa and kerlix dressing in place over left knee with scant serous drainage. Incision healing as expected for 5 days post-op, no concerning drainage from the incision site or surrounding erythema. Ecchymosis present consistent w/ surgery and tourniquet. Calves soft and nontender bilaterally. Const General: cooperative and healthy appearing Resp Effort & Inspection: normal respiratory effort and able to speak in complete sentences Neuro General: patient alert, patient awake and patient oriented x3 Objective Labs 09/30/23 04:38 09/30/23 04:38 Labs: Laboratory Results - last 24 hr 09/29/23 09/30/23 10:16 04:38 WBC 7.4 RBC 3.79 L Hgb 11.4 L Hct 34.1 L MCV 89.8 MCH 30.1 MCHC 33.5 RDW 14.0 Plt Count 205 Neut % (Auto) 53.9 D Lymph % (Auto) 30.4 D [place] % (Auto) 14.2 H Eos % (Auto) 1.2 L Baso % (Auto) 0.3 Neut # (Auto) 4000 Lymph # (Auto) 2200 [place] # (Auto) 1000 H Eos # (Auto) 100 Baso # (Auto) 0 Sodium 134 L 135 L Potassium 3.5 4.0 Chloride 101 101 Carbon Dioxide 25 27 BUN 21 H 19 Creatinine 0.96 0.82 Estimated GFR > 60 > 60 BUN/Creatinine Ratio 21.9 23.2 H Glucose 223 H 134 H Hemoglobin A1c 6.6 H Calcium 8.4 8.4 Magnesium 2.1 C-Reactive Protein 23.0 H Procalcitonin 0.32 0.18 TSH 0.38 L Free T4 1.52 [facility] Medical History (Updated 09/29/23 @ 04:49 by Valorie Painter MD) Hypertension Diabetes Social History household members: spouse Smoking Status: Never smoker alcohol intake: current Assessment & Plan Assessment and plan (1) Total knee replacement status: Qualifiers: Laterality: left Qualified Code(s): Z96.652 - Presence of left artificial knee joint Status: Acute Plan -Continue heparin for VTE prophylaxis -Continue multimodal pain management including ice machine -Continue to work on mobility/ambulation with PT. Discussed working on resting knee in full extension and elevating the foot -Keep dressing clean and dry, if dressing becomes saturated okay to remove and replace with clean and dry gauze. No soaking the incision on tubs or pools, no topical lotions, creams or ointments to the incision site. -Repeat EKG today. Possible d/c today at the discretion of cardiology and medicine and pending voiding trial once Mejia removed.
--- NOTE | 2023-09-30 10:00 | PT.IIE ---
Current Diagnoses Presence of left artificial knee joint (09/29/23) Presence of unspecified artificial knee joint (09/29/23) Medical History (Last Updated 09/28/23 @ 21:29 by Valorie Painter MD) Diabetes Hypertension Physical Therapy Inpatient Evaluation/Re-Eval M1 PT/OT-IP Prior Functional Status Start: 09/30/23 12:42 Freq: NEEDED Status: Active Protocol: Document 09/30/23 10:00 AB (Rec: 09/30/23 13:06 AB [id number]) Medical Review Prior Functional Status Medical History Reviewed Yes Communication able to make needs known Mobility and Gait pt stated that prior to L TKA 09/25/23, he was modified independent with all mobilities without AD; pt has been using a FWW since L TKA Social History Household Members significant other Living Arrangements House Number of Floors (Floors) One Floor Number of Stairs To Enter/Railing? 1 step to enter Home Environment Standard Height Toilet,Tub/ Shower Home Equipment Front Wheel Walker,Shower Seat with Backrest,Hand Held Shower,Grab Bars In Shower M2 PT-IP Current Condition Start: 09/30/23 12:42 Freq: NEEDED Status: Active Protocol: Document 09/30/23 10:00 AB (Rec: 09/30/23 13:06 AB [email or web address]) Physical Therapy Current Condition Current Condition Evaluation Date 09/30/23 Treatment Diagnosis a-fib; s/p L TKA; difficulty in walking Onset Date 09/29/23 M3 PT-IP Subjective Start: 09/30/23 12:42 Freq: NEEDED Status: Active Protocol: Document 09/30/23 10:00 AB (Rec: 09/30/23 13:06 AB [email or web address]) Subjective Physical Therapy Visit Type Type Initial Evaluation Visit Start Time 10:00 Visit Stop Time 10:45 Total Visit Minutes 45 Number of RECOVERY OPERATOR Visits 0 Physical Therapy Visit Comments Patient Comments agreeable to do PT Therapy Pain Assessment Pain When Pain Assessed At Rest Pain Present Pain Present Pain Reported Location Left Knee Scale Used pain scale not stated Pain Management Techniques Apply Cold,Modification of Treatment,Re-positioning, Timing of Activity with Medications M4 PT-IP Mobility and Gait Start: 09/30/23 12:42 Freq: NEEDED Status: Active Protocol: Document 09/30/23 10:00 AB (Rec: 09/30/23 13:06 AB [id number]) PT-Bed Mobility Assessment Supine to Sit Supine to Sit Standby Assistance Sit to Supine Sit to Supine Standby Assistance PT-Transfer Assessment Sit to and From Stand Sit to and from Stand Standby Assistance,1 Person Assistance,Use of Upper Extremities Equipment Transfer Assistive Device Gait Belt,Front Wheeled Walker Orthotic/Prosthetic Devices or Brace: No Transfers Transfer Destination Bed,Chair Transfer Technique ambulated Transfer Ability Level of Assist Standby Assistance Comments Mobility Comments checked on pt earlier this morning but was up and walking to use the toilet. Pt needing SBA using FWW. pt presents with antalgic gait with increase L knee flexion in standing. pt left to use the toilet. checked back again on pt and pt in bed and agreed to do PT. obtained PLOF and home set up. pt underwent L TKA 09/25/23 and went home after surgery. pt stated that his outpt PT will be starting this coming monday but has not started any of his home exercise program. BP in supine: R arm: 182/90 L arm: 182/97. MMT and PROM checked. pt with ~ 30 deg less to 0 for L knee extension and ~ 70 deg for L knee flexion. educated pt regarding HEP and importance of stretching exercises. post -op folder provided and reviewed contents. pt completed passive extension on LLE . pt completed supine to sit SBA. able to sit on EOB CGA. completed sit to stand and step transfer to chair using FWW SBA. pt presents with increase L knee flexion and pt tends not to put weight on LLE. pt completed seated knee flexion with 10 sec hold for stretching. educated pt on weight bearing on LLE and stability of L knee/quads contraction to decrease antalgic gait. pt completed sit to stand SBA and ambulated in room ~ 30 ft using fWW SBA and cued for quads contraction and steadiness. decrease antalgic gait after a few steps but requiries cues for carryover. pt sat on the chair. educated on stair climbing. pt completed sit to stand SBA and ambulated towards the platform step and completed using FWW CGA and initial cues needed for safety and pt completed again without cues. pt ambulated back to his room, requested to go back to bed. completed sit to supine SBA. positioned pt in bed. call light and table placed wtihin reach. cold therapy machine applied. Gait Assessment Gait Gait Assistance Required: Standby Assistance Distance (Feet) 30 Able to Maintain Weight Bearing Status Yes During Gait Assistive Devices Assistive Device Gait Belt,Front Wheeled Walker Orthotic/Prosthetic Devices or Brace: No Gait Deviations General Gait Pattern Antalgic,Decreased Stride Length,Decreased Feet Clearance,Step-to Gait Factors Limiting Gait Function Factors Limiting Gait Function Decreased Activity Tolerance, Decreased Strength,Limited Range of Motion,Pain,Poor Balance,Poor Safety Awareness Stair Climbing Assessment Evaluation Level of Assist On Stairs Contact Guard Assistance Devices Stair Climbing Assistive Devices Front Wheel Walker Technique/Endurance Stair Climbing Direction Ascend and Descend Stair Climbing Technique Step to Step Number of Steps Climbed 1 Query Text: Stair Climbing Set # Repetitions (reps) 2 PT-Balance Assessment Sitting Balance and Reactions Static Sitting Balance Ability Normal Dynamic Sitting Balance Ability Normal Standing Balance and Reactions Static Standing Balance Ability Good Dynamic Standing Balance Ability Fair Device Used FWW M5 PT-IP Objective Assessments Start: 09/30/23 12:42 Freq: NEEDED Status: Active Protocol: Document 09/30/23 10:00 AB (Rec: 09/30/23 13:06 [email or web address]) Orientation Orientation/Cognition Level of Alertness Alert Orientation Name,Place,Situation Language Function Ability No Deficits Noted Safety Awareness Understands Safety Issues Memory Description No Deficits Noted Gross Range of Motion Lower Extremity ROM Assessment Left Impaired Impairments L Knee: 30-70 deg Strength Lower Extremity Strength Assessment Left Impaired Knee 3+/5 Muscle Tone Muscle Tone WNL Yes M6 PT-IP Treatment Start: 09/30/23 12:42 Freq: NEEDED Status: Active Protocol: Document 09/30/23 10:00 AB (Rec: 09/30/23 13:06 [email or web address]) Physical Therapy Treatment Exercises Exercises Heel Slides,Passive Knee Extension Hang,Seated Knee Flexion/Extension Education Education Provided Precautions,Weight Bearing Status,Post-Op Packet,Safety M7 PT-IP Assessment and Plan Start: 09/30/23 12:42 Freq: NEEDED Status: Active Protocol: Document 09/30/23 10:00 AB (Rec: 09/30/23 13:06 [email or web address]) PT Summary Assessment and Plan Potential Rehabilitation Potential Fair Status of Condition at Evaluation Evolving Summary Impairments Pain,ROM,Strength,Balance, Coordination,Sensation,Tone, Cognition,Bed Mobility, Transfers,Gait,Activity Tolerance Assessment Summary pt is a 73 y/o M who presented to the ED after being sent by ortho clinic due to tachycardia. pt has his L TKA 09/25/23 for was at the ortho clinic for a f/u visit. pt admitted for A-fib. pt requiring SBA with mobility using FWW. pt present with antalgic gait with tendency of pt not to put weight on LLE. educated pt with HEP and weight bearing on LLE. pt lives with his significant other who will be able to assist him. pt may go home when medically stable. pt has outpt PT scheduled. Goals Bed Mobility Goal Independent Transfer Goal Independent,Front Wheeled Walker Gait Goal Independent,Front Wheel Walker Gait Distance 300 Other Goals improve transfers and ambulation using LRAD ~ 300 ft SBA up/down 1 step using LRAD SBA Days to Meet Goals 10 Frequency of Treatment Frequency Of Treatment Once a Day Treatment Plan Physical Therapy Treatment Plan Bed Mobility Training,Transfer Training,Gait Training, Therapeutic Exercise,Balance Retraining,Post Op Education, Discharge Planning,Hot or Cold Pack,Neuromuscular Re-ed, Coordination Retraining,Manual Therapy Weight Bearing Status Weight Bearing Status Weight Bear as Tolerated Allowed Weight Bearing Amount (enter % LLE WBAT or #) (%) Recommendations To Nursing Amount of Assist Needed Standby Assistance Discharge Recommendations PT Discharge Recommendations Home with Assistance, Outpatient PT Transportation Needs at Discharge Private Vehicle
[2023-09-30] MEDS: ACETAMINOPHEN 325 MG TABLET 975 MG PO ×2 (10:11→17:02)
--- NOTE | 2023-09-30 10:24 | CM.DANOTE ---
Initial DCP Assessment Visit Note Reviewed EMR and team rounds for pt's medical status and anticipated d/c needs. Pt was working with OT at time of this SCOOPER's visit, so did not meet with him at this time, will plan to meet with him later this afternoon. Pt resides in his own home with his significant other, his proxy is his son Dustin. Payor: Edenilson Childers Attending: Hospitalist/Ortho-Dr. Gong Pt is a 73 year-old M post-op day-5 for a total L-knee arthroplasty who was sent to the ED by Ortho for further evaluation due to being tachycardic at rest. Pt had also had a rapid onset experience of near syncope, hypertension, and tachyarythmia. ED evaluation and EKG demonstrated possible A-flutter, urinary retention. Cardiology was consulted and recommended admission for echo and tx with metoprolol. Pt states his knee pain today is at a 5/10, Ortho recommended further multimodal pain management to continue until d/c. DCP will follow and assist with any further evolving d/c needs. Discharge Planning/Care Management Advanced directive, confirm from FAMILY Start: 09/29/23 16:49 Freq: Q24H Status: Active Protocol: Document 09/29/23 16:49 EJ (Rec: 09/29/23 18:27 EJ [id number]) Advance Directive, confirm on record Time 16:49 Person contacted Juliana Talamantes Copy received No CM Discharge Assessment Start: 09/30/23 10:18 Freq: Status: Active Protocol: Document 09/30/23 10:18 DPL (Rec: 09/30/23 10:22 DPL [id number]) Discharge Planning Assessment Assigned Telegraph Dispatcher ANNE MARIE Weller Advance Directives? Yes Advance Directives on File No History Provided By Medical Record Expected Length of Stay 2 Prior Living Arrangements House Household Members significant other Type of transporation used prior to Drives own vehicle admit Independent with ADL's Yes Is patient alert and oriented? Yes Caregiver for Another No Community Services used prior to Physical Therapy admission: DME Already Rented / Owned Cane Patient/Family Preference OP PT Therapy Barriers to Discharge No Discharge Plan Home Community Services Physical Therapy Referrals Initiated None needed Whiteboard Updated in Patient Room with Yes name and ext. # of Telegraph Dispatcher Review Status In Process Please Provide Date Initial DC 09/30/23 Assessment Was Performed
--- NOTE | 2023-09-30 11:00 | PM.PN.1 ---
Subjective Subjective Interval history: He is having small amounts of loose stool, but no normal bowel movement for about 4 days. His left knee is having minimal pain. He denies headache, chest pain or dyspnea. His blood pressure and heart rate remain high. He has been taking lisinopril 30 mg a day at home. He has blood pressure readings of about [address] pulmonary angiogram was negative, ECG today confirms normal sinus rhythm. Echo also reveals a sinus rhythm rhythm with no report of arrhythmia. Exam Vital Signs (past 8 hours): - 09/30/23 06:00 09/30/23 06:56 09/30/23 08:00 Temperature 97.8 F Pulse Rate 80 92 H Respiratory Rate 15 Blood Pressure 180/87 H 152/82 H 184/96 H Pulse Oximetry 100 Oxygen Flow Rate 0 09/30/23 08:07 Temperature 98.4 F Pulse Rate 98 H Respiratory Rate 19 Blood Pressure 166/93 H Pulse Oximetry 96 Oxygen Flow Rate 0 Oxygen Delivery Method Room Air Oxygen Flow Rate 0 Narrative Exam Narrative: NAD, fluent speech and normal affect. Lungs are clear, normal effort. Heart is slightly tachycardic, without murmur. Abdomen is soft, nontender. Extremities are free of edema, left knee wrapped. Normal peripheral pulses. Objective Labs 09/30/23 04:38 09/30/23 04:38 Labs: Laboratory Results - last 24 hr 09/29/23 09/30/23 10:16 04:38 WBC 7.4 RBC 3.79 L Hgb 11.4 L Hct 34.1 L MCV 89.8 MCH 30.1 MCHC 33.5 RDW 14.0 Plt Count 205 Neut % (Auto) 53.9 D Lymph % (Auto) 30.4 D [place] % (Auto) 14.2 H Eos % (Auto) 1.2 L Baso % (Auto) 0.3 Neut # (Auto) 4000 Lymph # (Auto) 2200 [place] # (Auto) 1000 H Eos # (Auto) 100 Baso # (Auto) 0 Sodium 134 L 135 L Potassium 3.5 4.0 Chloride 101 101 Carbon Dioxide 25 27 BUN 21 H 19 Creatinine 0.96 0.82 Estimated GFR > 60 > 60 BUN/Creatinine Ratio 21.9 23.2 H Glucose 223 H 134 H Hemoglobin A1c 6.6 H Calcium 8.4 8.4 Magnesium 2.1 C-Reactive Protein 23.0 H Procalcitonin 0.32 0.18 TSH 0.38 L Free T4 1.52 COUNT INCLUDES THE [facility] Medical History (Updated 09/29/23 @ 04:49 by Valorie Painter MD) Hypertension Diabetes Social History household members: significant other Smoking Status: Never smoker alcohol intake: current Assessment & Plan Assessment & Plan narrative: Tachycardia, POA and active. -patient's EKG suspicious for A-flutter per Dr. Jalloh cardiology, adenosine given in ED without much effect. No flutter on ECHO, NSR today on ECG. -Dr. Palacio also reviewed and thought was more likely sinus tach -Continue metoprolol 50 Q 6 -should have outpatient zio patch arranged -echo with EF 60-65%, mild-mod MR, RVSP 25 -continue telemetry. # Left TKR with improving pain, orthopedics feels there is no infection. POA and active. -initially concern in ED for infection, abx given -orthopedics was consulted and did not think infection present, said pain is expected 4 days post-op -antoiibiotics stopped -PT eval # ROSALINDA secondary to urinary retention, POA and improving. -mejia placed in ED due to unable to fully void -Cr initially 1.63, now normalized -patient has h/o of prostatectomy due to prostate cancer -will need voiding trial prior to discharge -start Flomax today. # HTN, POA and uncontrolled. -continue lisinopril, increase to baseline 30 mg daily -continue metoprolol 50 QID # DM2, POA and stable/ -SSI -hold metformin -A1c 6.6% Code status is full code. DVT prophylaxis with heparin. Proxy is saul Chan.
[2023-09-30] MEDS: TAMSULOSIN 0.4 MG CAPSULE PO (11:46)
[2023-09-30] MEDS: SODIUM CHLORIDE 0.9% 1,000 ML 125 ML IV ×2 (11:47→21:13)
[2023-09-30] MEDS: polyethylene glycoL 3350 17 GM POWD.PACK PO (11:48)
[2023-09-30] MEDS: lisinopriL 20 MG TABLET PO (11:56)
[2023-09-30] MEDS: LABETALOL 20 MG/4 ML SYRINGE 10 MG IV ×2 (14:48→15:36)
[2023-09-30] MEDS: AMLODIPINE 5 MG TABLET PO (17:02)
[2023-09-30 19:26] LABS: Troponin I < 0.012 ng/mL (0.01-0.034)
[2023-09-30] MEDS: ASPIRIN EC 81 MG TABLET PO (21:38)
[2023-10-01] VITALS: BP 157/87; PULSE 104; RESP 18; TEMP 36.6; O2SAT 94
[2023-10-01] MEDS: METOPROLOL IR 25 MG TABLET 50 MG PO ×4 (00:27→16:15)
[2023-10-01] MEDS: OXYCODONE IR 10 MG TABLET PO ×4 (00:28→13:34)
[2023-10-01 04:00] VITALS: BP 165/86; PULSE 96; RESP 18; TEMP 36.2; O2SAT 95
[2023-10-01 04:56] LABS: Add Manual Diff / Slide Review NO; Basophils Absolute Auto 0 /uL (0-100); Basophils Percent Auto 0.3 % (0-2); Eosinophils Absolute Auto 100 /uL (0-450); Eosinophils Percent Auto 1.7 % (2-4); Hematocrit 29.4 % (41-53); Hemoglobin 10.1 g/dL (13.5-17.5); Lymphocytes Absolute Auto 2200 /uL (1100-4500); Lymphocytes Percent Auto 30.3 % (25-40); Mean Corpuscular HGB Conc 34.2 % (30-36); Mean Corpuscular Hemoglobin 30.4 PG (26-34); Mean Corpuscular Volume 88.9 fL (80-100); Monocytes Absolute Auto 1000 /uL (0-900); Monocytes Percent Auto 13.6 % (3-14); Neutrophils Absolute Auto 3900 /uL (1500-7000); Neutrophils Percent Auto 54.1 % (50-75); Platelet Count 196 X10^3/uL (150-400); Red Blood Cell Count 3.31 X10^6/uL (4.5-5.9); White Blood Cell Count 7.2 X10^3/uL (4.5-11.0)
[2023-10-01 05:04] LABS: Magnesium 1.7 mg/dL (1.6-2.3)
[2023-10-01 05:07] LABS: BUN Creatinine Ratio 17.4 (6-22); Blood Urea Nitrogen 12 mg/dL (9-20); Calcium 8.4 mg/dL (8.4-10.2); Carbon Dioxide 25 mmol/L (22-32); Chloride 103 mmol/L (98-107); Estimated Glomerular Filt Rate > 60 mL/min (>60); Glucose 154 mg/dL (80-110); HEMOLYSIS < 15 (0-50); Potassium 3.9 mmol/L (3.4-5.1); Sodium 133 mmol/L (137-145)
[2023-10-01 05:21] LABS: Procalcitonin 0.13 ng/mL (<0.5)
[2023-10-01 08:17] VITALS: BP 158/86; PULSE 88
[2023-10-01] MEDS: AMLODIPINE 5 MG TABLET 10 MG PO (08:17)
[2023-10-01] MEDS: lisinopriL 10 MG TABLET 30 MG PO (08:17)
[2023-10-01] MEDS: TAMSULOSIN 0.4 MG CAPSULE PO (08:18)
[2023-10-01] MEDS: HEPARIN 5,000 UNIT/ML VIAL 5000 UNIT SUBCUT (08:18)
[2023-10-01] MEDS: ASPIRIN EC 81 MG TABLET PO (08:18)
[2023-10-01] MEDS: MAGNESIUM CHLORIDE 64 MG TABLET 128 MG PO (08:19)
--- NOTE | 2023-10-01 08:58 | PM.PN.1 ---
Subjective Subjective Interval history: He is doing better today. Better pain control with increased pain medication. We started Flomax yesterday, we will try to remove the Mejia today. He denies any chest pain, palpitations or shortness of breath. His goal today is to ambulate more with the knee and work on his knee extension. There is no leg swelling. Exam Vital Signs (past 8 hours): - 10/01/23 04:00 10/01/23 08:17 Temperature 97.1 F L Pulse Rate 96 H 88 Respiratory Rate 18 Blood Pressure 165/86 H 158/86 H Pulse Oximetry 95 Oxygen Flow Rate 0 Oxygen Delivery Method Room Air Oxygen Flow Rate 0 Narrative Exam Narrative: NAD, oriented, fluent speech. Lungs are clear, normal rate and effort. Heart is regular, no murmur. Abdomen is nondistended. Extremities are free of edema, left knee is wrapped. Skin is otherwise free of rash or lesions. Objective Labs 10/01/23 04:42 10/01/23 04:42 Labs: Laboratory Results - last 24 hr 09/30/23 10/01/23 18:55 04:42 WBC 7.2 RBC 3.31 L Hgb 10.1 L Hct 29.4 L MCV 88.9 MCH 30.4 MCHC 34.2 RDW 14.0 Plt Count 196 Neut % (Auto) 54.1 Lymph % (Auto) 30.3 [place] % (Auto) 13.6 Eos % (Auto) 1.7 L Baso % (Auto) 0.3 Neut # (Auto) 3900 Lymph # (Auto) 2200 [place] # (Auto) 1000 H Eos # (Auto) 100 Baso # (Auto) 0 Sodium 133 L Potassium 3.9 Chloride 103 Carbon Dioxide 25 BUN 12 Creatinine 0.69 Estimated GFR > 60 BUN/Creatinine Ratio 17.4 Glucose 154 H Calcium 8.4 Magnesium 1.7 Troponin I < 0.012 Procalcitonin 0.13 [facility] Medical History (Updated 09/29/23 @ 04:49 by Valorie Painter MD) Hypertension Diabetes Social History household members: significant other Smoking Status: Never smoker alcohol intake: current Assessment & Plan Assessment & Plan narrative: 1. Tachycardia, POA and improved. -patient's EKG suspicious for A-flutter per Dr. Jalloh cardiology, adenosine given in ED without much effect. No flutter on ECHO, NSR today on ECG. -Dr. Palacio also reviewed and thought was more likely sinus tach -Continue metoprolol 50 Q 6 -should have outpatient zio patch arranged -echo with EF 60-65%, mild-mod MR, RVSP 25 -continue telemetry. -echo and ECG on September 30 revealed normal sinus rhythm. 2. Left TKR with improving pain, orthopedics feels there is no infection. POA and active. -initially concern in ED for infection, abx given -orthopedics was consulted and did not think infection present, said pain is expected 4 days post-op -antoiibiotics stopped -PT eval 3. ROSALINDA secondary to urinary retention, POA and resolved. -mejia placed in ED due to unable to fully void -Cr initially 1.63, now normalized -patient has h/o of prostatectomy due to prostate cancer -will need voiding trial prior to discharge -start Flomax today. 4. Urinary retention, present on admission and active. -start Flomax yesterday. -we will remove Mejia today, October 01, and follow ability to void. 5. HTN, POA and control improving. -continue lisinopril, increase to baseline 30 mg daily -continue metoprolol 50 QID -added amlodipine on September 30, increase dose on October 01. 6. DM2, POA and stable. -SSI -hold metformin -A1c 6.6% Code status is full code. DVT prophylaxis with heparin. Proxy is saul Chan. Fiancee is Roma.
[2023-10-01] MEDS: ACETAMINOPHEN 325 MG TABLET 975 MG PO (09:22)
--- NOTE | 2023-10-01 10:33 | CM.DPC ---
DCP Cont: Met with patient and son, today. Introduced self and role. Asked patient if he were interested in home health services, patient still has catheter in place. Patient was mobilizing in the hallway. He is pleasant, alert. Asked him if he was interested in home health services. He indicated, he lives with his fiance, does not think he needs it. Explained services to patient, that nurse can come in, check wound around knee. Stated, he lives with his fiance, she should be able to help. Placed name of this DC materials planner/production planner and phone number in case he changes his mind. P: DCP to continue to follow for any needs. Plan is home when stable, he will think about home health. Irais Delong RN/[employer] Design Architect
--- NOTE | 2023-10-01 11:23 | PT-IP ANOTE ---
Attempted to see pt at 11:05, pt recently ambulating long distances in hallway and practicing stairs w/ son. RN confirms. Pt requesting to rest at this time. Plans to d/c home w/ partners support, has first OP appt 10/02.
[2023-10-01 12:00] VITALS: BP 168/95; PULSE 90
--- NOTE | 2023-10-01 12:28 | PM.PNPO.1 ---
Subjective Subjective Date Patient Seen: 10/01/23 Time Patient Seen: 12:29 Interval history: Postop day 6. After left total knee arthroplasty. Admitted to the hospital for tachycardia and urinary retention Feeling okay today. Son kathryn still has heart rates averaging in the 90s. No acute distress. No chest pain no fevers no chills. Has also been hypertensive persistently. Lisinopril dose was increased by hospitalist and amlodipine added. Was also started on Flomax yesterday and just cut his Albarran removed today. He has on a voiding trial. He was able to have a bowel movement yesterday after MiraLax so elected to hold his MiraLax this morning. He has been using his ice machine regularly. And he has been working on his knee range of motion and he was ambulated in the halls. Knee pain relatively well controlled on pain medications. He has not been short of breath. He is nausea and presyncopal episodes that led to his admission seem to have resolved. His creatinine was elevated on admission but has resolved to normal level Exam Vital Signs (past 8 hours): - 10/01/23 08:17 10/01/23 12:00 Pulse Rate 88 90 Blood Pressure 158/86 H 168/95 H Oxygen Delivery Method Room Air Oxygen Flow Rate 0 Narrative Exam Narrative: Alert oriented no acute distress. Sitting in bed. His son Dustin is at bedside this morning Left knee was evaluated. Dressing taken down. Incision is intact. No erythema or signs of infection. He does have evolving ecchymosis consistent with postoperative hematoma . No concerning signs. He distal of some serous blisters located medial and lateral to the incision around his leg related to swelling and or adhesive. There is no rash no erythema. Calf is soft thigh is soft. Patient demonstrates near full extension to flexion of 90 for me today in bed. States he can do this better when he is standing. They are demarcations on the knee where the compressive ice machine wrap has been. He demonstrates active dorsiflexion plantar flexion. There is a strong palpable dorsalis pedis pulse. Overall very typical early postoperative knee replacement appearance Objective Labs 10/01/23 04:42 10/01/23 04:42 Labs: Laboratory Results - last 24 hr 09/30/23 10/01/23 18:55 04:42 WBC 7.2 RBC 3.31 L Hgb 10.1 L Hct 29.4 L MCV 88.9 MCH 30.4 MCHC 34.2 RDW 14.0 Plt Count 196 Neut % (Auto) 54.1 Lymph % (Auto) 30.3 [place] % (Auto) 13.6 Eos % (Auto) 1.7 L Baso % (Auto) 0.3 Neut # (Auto) 3900 Lymph # (Auto) 2200 [place] # (Auto) 1000 H Eos # (Auto) 100 Baso # (Auto) 0 Sodium 133 L Potassium 3.9 Chloride 103 Carbon Dioxide 25 BUN 12 Creatinine 0.69 Estimated GFR > 60 BUN/Creatinine Ratio 17.4 Glucose 154 H Calcium 8.4 Magnesium 1.7 Troponin I < 0.012 Procalcitonin 0.13 [facility] Medical History (Updated 09/29/23 @ 04:49 by Valorie Painter MD) Hypertension Diabetes Social History household members: significant other Smoking Status: Never smoker alcohol intake: current Assessment & Plan Post-op Postoperative Postoperative day: 6 Postoperative status: doing well Postoperative status narrative: Pain is controlled. Knee appearance consistent with early postoperative course. Weightbear as tolerated. Knee range of motion and icing for standard postoperative total knee replacement protocol. He has undergoing a voiding trial and will be discharged with Flomax for the medicine team. They are also working on adjusting his antihypertensives and beta-blockers. Based on his workup we do not have a specific reason for his tachycardia and hypertension. CTA was negative for pulmonary embolism. Echocardiogram demonstrated good function. Repeat EKG demonstrated sinus rhythm. He is recommended for outpatient monitoring with Zio patch may need further cardiology workup. When appropriate for discharge needs to remain on his aspirin 81 mg b.i.d. for total of 6 weeks postop for his knee. He will follow up with Orthopedic surgery in our outpatient clinic as previously scheduled 10/10/2023-2:30 p.m. [facility] [address] Time Spent With Patient Time with patient: less than 15 minutes Quality VTE Deep Vein Thrombosis/Pulmonary Embolism Present on Admission: No
--- NOTE | 2023-10-01 15:35 | P.DS_ITS ---
History of Present Illness History of Present Illness Date Patient Seen: 09/29/23 Date of Onset of Symptoms: 09/28/23 Chief complaint: sent for rapid heartrate Narrative: Juliana Talamantes is a 73yo M with PMH of 4 days post-op for L total knee replacement, prostate cancer s/p prostatectomy, HTN and DM2 who presents with tachycardia, urinary retention and L knee pain. Patient was initially seen in ortho clinic for follow-up for blistering around the bandage on his L knee from a skin eruption. He was found to be tachycardic at rest so was sent to the ED. EKG showed possible A-flutter. Cardiology called and recommended adenosine which he was given. Repeat EKG then showed sinus tach. Cardiology recommended admission for echo and metoprolol. Patient states he has no history of heart issues. He mainly has pain in his left knee. He also notes that he couldn't urinate in the ED so a mejia was placed. He denies CP, SOB, NV, palpitations, abd pain or diarrhea. Discharge Providers Provider Date of admission: 09/29/23 08:00 Discharge Date: 10/01/23 Primary care physician: Adalgisa Gong MD Consults: 09/29/23 08:01 Consult to Orthopedic Surgery Stat Comment: Consulting Provider: Adalgisa Gong Reason for consultation: post knee, admitted for tachycardia Has provider been notified: Yes 09/29/23 15:40 Consult to Occupational Therapy Evaluate & Treat Comment: L TKA 09/25/2023; WBAT to LLE Physician Instructions: Evaluate and treat Consult to Physical Therapy Evaluate & Treat Comment: L TKA 09/25/2023; WBAT to LLE Physician Instructions: Evaluate and Treat Discharge provider: Bob Mayfield MD Summary Hospital Course Discharge Diagnosis: 1. Tachycardia, POA and improved. -patient's EKG suspicious for A-flutter per Dr. aJlloh cardiology, adenosine given in ED without much effect. No flutter on ECHO, NSR today on ECG. -Dr. Palacio also reviewed and thought was more likely sinus tach -Continue metoprolol 50 Q 6 -should have outpatient zio patch arranged -echo with EF 60-65%, mild-mod MR, RVSP 25 -continue telemetry. -echo and ECG on September 30 revealed normal sinus rhythm. 2. Left TKR with improving pain, orthopedics feels there is no infection. POA and active. -initially concern in ED for infection, abx given -orthopedics was consulted and did not think infection present, said pain is expected 4 days post-op -antoiibiotics stopped -PT eval 3. ROSALINDA secondary to urinary retention, POA and resolved. -mejia placed in ED due to unable to fully void -Cr initially 1.63, now normalized -patient has h/o of prostatectomy due to prostate cancer -will need voiding trial prior to discharge -started Flomax 09/30. 4. Urinary retention, present on admission and active. -start Flomax yesterday. -mejia removed and able to void. 5. HTN, POA and control improving. -continue lisinopril, increase to baseline 30 mg daily -continue metoprolol 50 QID -added amlodipine on September 30, increase dose on October 01. 6. DM2, POA and stable. -SSI -hold metformin -A1c 6.6% Hospital Course: The patient presented with postoperative knee pain on postop day 4 after his left total knee replacement. There was initially concern about the possibility of infection. Antibiotics were started in orthopedics did evaluate him. They felt that there was no evidence of infection and antibiotics were stopped. The patient was found to have evidence of ROSALINDA as well as tachycardia and hypertension. In addition the patient had urine retention and a Mejia catheter was placed. A CT pulmonary angiogram and echo were both obtained to rule out evidence of pulmonary embolism or other cardiac abnormality. Initially there was concern for a flutter versus SVT. The echo indicated no a arrhythmia and a repeat ECG 1 day later was normal sinus rhythm. The patient was treated with IV fluids as well as up titration of metoprolol. In addition amlodipine was added and uptitrated. Flomax was started the patient is able to is fully removed and urinate twice without difficulty on the day of discharge. His blood pressures improved. His control at home previously on 30 mg of lisinopril was probably somewhat marginal with systolics in the 150 region. I met with the patient and his fiancee at the time of discharge and they are both eager to leave the hospital. Continue aspirin b.i.d. and keep a log of blood pressures and follow up with his primary care within 6 days. Status at Discharge Cognitive/behavioral status at discharge: oriented Functional status at discharge: independent ambulation Time Spent with Patient Time spent: Greater than 30 minutes Exam Vital Signs (past 8 hours): - 10/01/23 08:17 10/01/23 12:00 Pulse Rate 88 90 Blood Pressure 158/86 H 168/95 H Oxygen Delivery Method Room Air Oxygen Flow Rate 0 Narrative Exam Narrative: NAD, oriented, fluent speech. Lungs are clear, normal rate and effort. Heart is regular, no murmur. Abdomen is nondistended. Extremities are free of edema, left knee is wrapped. Skin is otherwise free of rash or lesions. Objective ECG Impression: NSR, tachycardia Imaging Knee xray: Radiologist's impression: xpected post-operative appearance of a knee arthroplasty. CT scan - chest: Radiologist's impression: There is no acute pulmonary embolism. Mild bibasilar opacities likely representing aspiration/bronchitis and atelectasis. Consider future imaging surveillance to assess for resolution. Ill-defined sclerosis of the vertebral bodies is indeterminate, correlate with any history of malignancy such as prostate. Other findings as above. Echo: Radiologist's impression: Interpretation Summary The ejection fraction is estimated to be 60-65%. There is mild to moderate mitral regurgitation. The right ventricular systolic pressure is estimated to be at least 25 mmHg based on an estimated right atrial pressure of 3 mm Hg. Procedure: A two-dimensional transthoracic echocardiogram with color flow and Doppler was performed. The study quality was technically adequate. Comparison is made with the echocardiogram of 11-15-06. The heart rate ranged between 96-98 bpm during the study. Left Ventricle: The left ventricle is normal in size and wall thickness. The ejection fraction is estimated to be 60-65%. Left ventricular wall motion is normal. Diastolic function could not be accurately assessed due to tachycardia. Right Ventricle: The right ventricle grossly appears normal in size with probable normal systolic function. Atria: The left atrial size is normal. Right atrial size is normal. The interatrial septum grossly appears intact with no obvious evidence for an atrial septal defect. Mitral Valve: The mitral valve leaflets appear borderline thickened, but open well. There is mild to moderate mitral regurgitation. Aortic Valve: The aortic valve opens well. No aortic regurgitation is present. Tricuspid Valve: The tricuspid valve leaflets are thin and pliable. The tricuspid valve leaflets are thickened and/or calcified, but open well. There is a trace or physiologic amount of tricuspid regurgitation. The right ventricular systolic pressure is estimated to be at least 25 mmHg based on an estimated right atrial pressure of 3 mm Hg. Pulmonic Valve: The pulmonic valve is not well visualized. There is no pulmonic valvular regurgitation. Great Vessels: The aortic root is normal size. The ascending aorta is normal in size. The aortic arch is normal in size. The IVC is of normal diameter and collapses greater than 50% with a sniff. This suggests a low right atrial pressure of 3 mm Hg. Pericardium/ Pleura There is no pericardial effusion. There is no pleural effusion. Chest x-ray: Radiologist's impression: No acute cardiopulmonary abnormality is seen. Labs 10/01/23 04:42 10/01/23 04:42 Labs: Laboratory Results - last 24 hr 09/30/23 10/01/23 18:55 04:42 WBC 7.2 RBC 3.31 L Hgb 10.1 L Hct 29.4 L MCV 88.9 MCH 30.4 MCHC 34.2 RDW 14.0 Plt Count 196 Neut % (Auto) 54.1 Lymph % (Auto) 30.3 [place] % (Auto) 13.6 Eos % (Auto) 1.7 L Baso % (Auto) 0.3 Neut # (Auto) 3900 Lymph # (Auto) 2200 [place] # (Auto) 1000 H Eos # (Auto) 100 Baso # (Auto) 0 Sodium 133 L Potassium 3.9 Chloride 103 Carbon Dioxide 25 BUN 12 Creatinine 0.69 Estimated GFR > 60 BUN/Creatinine Ratio 17.4 Glucose 154 H Calcium 8.4 Magnesium 1.7 Troponin I < 0.012 Procalcitonin 0.13 PFSH Medical History Hypertension Diabetes Social History household members: significant other Smoking Status: Never smoker alcohol intake: current Discharge Assessment & Plan Assessment and Plan Assessment: 1. Tachycardia, POA and improved. 2. Left TKR with improving pain, orthopedics feels there is no infection. 3. ROSALINDA secondary to urinary retention, POA and resolved. 4. Urinary retention, present on admission and resolved. 5. HTN, POA and control improving. 6. DM2, POA and stable. -A1c 6.6% Plan of Treatment: Patient will be discharged today. He will continue aspirin b.i.d. for DVT prophylaxis for 6 weeks. He will follow up with physical therapy tomorrow. He will keep a blood pressure log and bring it to his primary care within the next 5-6 days. In addition he is being discharged with Flomax, amlodipine 10 mg a day, and metoprolol 100 mg p.o. b.i.d. to add to his previous lisinopril at 30 mg a day. Discharge Plan Discharge Plan Patient Disposition: Home Provider Discharge Comment: Urine retention and tachycardia resolved. Discharge orders & Medications Prescriptions: New amlodipine [Norvasc] 5 mg Tablet 10 mg PO DAILY Qty: 30 1RF tamsulosin [Flomax] 0.4 mg Capsule 0.4 mg PO DAILY Qty: 30 1RF metoprolol tartrate 25 mg Tablet 100 mg PO BID Qty: 30 1RF Continued glipizide 10 mg tablet extended release 24hr 10 mg PO DAILY aspirin 81 mg tablet 1 tab BID oxycodone 5 mg Tablet 5 - 10 mg PO [id number] metformin 500 mg tablet 2,000 mg PO DAILY lisinopril 10 mg tablet 30 mg PO DAILY rizatriptan 5 mg tablet See Rx Instructions PO .COMPLEX Rx Instructions: take 1 tablet at onset of headache; if no relief, may repeat 1 tablet after at least 2 hrs PO Medication counseling provided by Pharmacist: No Follow up/Referrals: Adalgisa Gong MD [Primary Care Provider] - Discharge Health Status Multidrug resistant organism: No MDRO Diet/Activity/Treatments Diet: Diet as Tolerated Activity: Weight bearing as tolerated Cold/Heat Therapy: Ice for pain control to knee Skin/Wound/Dressing Care Report to your healthcare provider any signs of infection, such as:: chills, fever, increased pain, unusual drainage and unusual redness Dressing: Keep dressing clean and dry, if dressing becomes saturated okay to remove and replace with clean and dry gauze. No soaking the incision on tubs or pools, no topical lotions, creams or ointments to the incision site. Visit Report/Discharge Packet Instructions: DI for Atrial Flutter, DI for Atrial Fibrillation Stand Alone Forms: Patient Portal/API Discharge Data Primary Care Provider: Adalgisa Gong Quality VTE Deep Vein Thrombosis/Pulmonary Embolism Present on Admission: No MIPS - DC The patient has a history of heart transplant or Left Ventricular Assist Device (LVAD). If yes, STOP here.: No The patient has current or prior documentation of left ventricular ejection fraction (LVEF) less than or equal to 40%, or moderate or severely depressed left ventricular systolic function.: No
== END 2023-10-01 16:20 | disposition home or self-care (01) | DRG 309 ==
LOC: ED 09-29 07:20 → AC 09-29 08:21
PROVIDERS: Emergency Medicine; Hospitalist; Admitting Provider Student in an Organized Health Care Education/Training Program; Emergency Provider Emergency Medicine; PCP Orthopaedic Surgery Foot and Ankle Surgery; Referring Provider Emergency Medicine; Visit Provider Student in an Organized Health Care Education/Training Program
DX: R00.0 Tachycardia, unspecified (principal); N17.9 Acute kidney failure, unspecified; G89.18 Other acute postprocedural pain; M25.562 Pain in left knee; R33.9 Retention of urine, unspecified; I10 Essential (primary) hypertension; E11.9 Type 2 diabetes mellitus without complications; Z79.84 Long term (current) use of oral hypoglycemic drugs; Z96.652 Presence of left artificial knee joint
CPT/HCPCS: 36415; 51702; 51798; 71045; 71275; 73560; 80048; 80053; 81003; 81015; 82550; 82962; 83036; 83605; 83690; 83735; 84145; 84439; 84443; 84484; 85014; 85018; 85025; 85049; 85379; 85610; 85730; 86140; 87040; 93005; 93010; 93306; 96365; 96366; 96367; 96375; 96376; 97110; 97116; 97161; 99285; G0378; J0153; J1644; J1815; J2543; J3475; Q9967

== ENCOUNTER → 2024-08-05 12:55 | Outpatient (CLI) | payer OTHER, SELFPAY ==
[2023-09-29 14:00] VITALS: BMI 22.0
[2024-08-05 13:55] LABS: Add Manual Diff / Slide Review NO; Basophils Absolute Auto 0 /uL (0-100); Basophils Percent Auto 0.4 % (0-2); Eosinophils Absolute Auto 100 /uL (0-450); Eosinophils Percent Auto 1.7 % (2-4); Lymphocytes Absolute Auto 1900 /uL (1100-4500); Lymphocytes Percent Auto 29.2 % (25-40); Mean Corpuscular HGB Conc 33.2 % (30-36); Mean Corpuscular Hemoglobin 29.9 PG (26-34); Mean Corpuscular Volume 90.1 fL (80-100); Monocytes Absolute Auto 600 /uL (0-900); Monocytes Percent Auto 9.8 % (3-14); Neutrophils Absolute Auto 3800 /uL (1500-7000); Neutrophils Percent Auto 58.9 % (50-75); Platelet Count 223 X10^3/uL (150-400); Red Blood Cell Count 4.66 X10^6/uL (4.5-5.9); Red Cell Distribution Width 14.4 % (11.6-14.8); White Blood Cell Count 6.5 X10^3/uL (4.5-11.0)
[2024-08-05 14:03] LABS: Hemoglobin A1C% w Est Avg Glu 9.5 % (4.0-6.0)
[2024-08-05 14:16] LABS: BUN Creatinine Ratio 16.5 (6-22); Blood Urea Nitrogen 18 mg/dL (9-20); Calcium 9.4 mg/dL (8.4-10.2); Carbon Dioxide 30 mmol/L (22-32); Chloride 99 mmol/L (98-107); Estimated Glomerular Filt Rate > 60 mL/min (>60); Glucose 386 mg/dL (80-110); HEMOLYSIS < 15 (0-50); Potassium 4.4 mmol/L (3.4-5.1); Sodium 138 mmol/L (137-145)
== END ==
PROVIDERS: PCP Orthopaedic Surgery Foot and Ankle Surgery; Referring Provider Orthopaedic Surgery Foot and Ankle Surgery; Visit Provider Orthopaedic Surgery Foot and Ankle Surgery
DX: Z01.818 Encounter for other preprocedural examination (principal); R73.9 Hyperglycemia, unspecified; Z01.812 Encounter for preprocedural laboratory examination
CPT/HCPCS: 36415; 80048; 83036; 85025

== ENCOUNTER → 2024-08-30 16:25 | Outpatient (CLI) | payer OTHER, SELFPAY ==
[2023-09-29 14:00] VITALS: BMI 22.0
[2024-09-01 08:07] LABS: Fructosamine 324 umol/L (0-285)
== END ==
PROVIDERS: PCP Registered Nurse; Referring Provider Physician Assistant; Visit Provider Physician Assistant
DX: M17.11 Unilateral primary osteoarthritis, right knee (principal)
CPT/HCPCS: 36415; 82985

== ENCOUNTER → 2024-12-25 10:03 | Outpatient (CLI) | payer OTHER, SELFPAY ==
[2023-09-29 14:00] VITALS: BMI 22.0
[2024-12-25 10:42] LABS: Add Manual Diff / Slide Review NO; Basophils Absolute Auto 0 /uL (0-100); Basophils Percent Auto 0.2 % (0-2); Eosinophils Absolute Auto 400 /uL (0-450); Eosinophils Percent Auto 4.4 % (2-4); Hematocrit 38.4 % (41-53); Hemoglobin 12.6 g/dL (13.5-17.5); Lymphocytes Absolute Auto 1300 /uL (1100-4500); Lymphocytes Percent Auto 15.1 % (25-40); Mean Corpuscular HGB Conc 32.9 % (30-36); Mean Corpuscular Hemoglobin 29.3 PG (26-34); Mean Corpuscular Volume 88.9 fL (80-100); Monocytes Absolute Auto 900 /uL (0-900); Monocytes Percent Auto 10.8 % (3-14); Neutrophils Absolute Auto 5900 /uL (1500-7000); Neutrophils Percent Auto 69.5 % (50-75); Platelet Count 334 X10^3/uL (150-400); Red Blood Cell Count 4.32 X10^6/uL (4.5-5.9); Red Cell Distribution Width 14.5 % (11.6-14.8); White Blood Cell Count 8.4 X10^3/uL (4.5-11.0)
[2024-12-25 11:03] LABS: Erythrocyte Sedimentation Rate 41 MM/HR (0-15)
[2024-12-25 11:11] LABS: C-Reactive Protein Quant 5.2 mg/dL (<1.0)
== END ==
PROVIDERS: PCP Registered Nurse; Referring Provider Physician Assistant; Visit Provider Physician Assistant
DX: M17.11 Unilateral primary osteoarthritis, right knee (principal); Z96.652 Presence of left artificial knee joint
CPT/HCPCS: 36415; 85025; 85651; 86140

== ENCOUNTER 2025-05-26 16:06 | Emergency (ER) | payer OTHER, SELFPAY ==
[2023-09-29 14:00] VITALS: BMI 22.0
[2025-05-26 16:31] VITALS: BP 132/67; PULSE 64; RESP 20; TEMP 36.6; O2SAT 100; BMI 19.8
[2025-05-26 17:43] VITALS: PULSE 62; O2SAT 99
[2025-05-26 17:45] VITALS: BP 130/64; PULSE 62; O2SAT 98
[2025-05-26 18:00] VITALS: BP 136/75; PULSE 60; O2SAT 97
[2025-05-26 18:30] VITALS: BP 141/75; PULSE 68; O2SAT 100
[2025-05-26 19:00] VITALS: BP 146/78; PULSE 68; O2SAT 98
== END 2025-05-26 21:28 | disposition left against medical advice (07) ==
PROVIDERS: Emergency Provider Emergency Medicine; PCP Registered Nurse
DX: Z53.21 Procedure and treatment not carried out due to patient leaving prior to being seen by health care provider (principal)
CPT/HCPCS: 99281

== ENCOUNTER → 2025-06-16 14:10 | Outpatient (CLI) | payer OTHER, SELFPAY ==
[2023-09-29 14:00] VITALS: BMI 22.0
--- NOTE | 2025-06-16 14:12 | DI.RAD.S_ITS ---
PROCEDURE: XR LUMBAR SPINE 2-3V INDICATIONS: SCIATICA OF LEFT SIDE TECHNIQUE: 3 views of the lumbar spine were acquired. COMPARISON: None. FINDINGS: Bones: 5 [id number] vertebrae are present. There is mild leftward curvature of lumbar spine centered at L3 level. Loss of disc height, degenerative endplate changes and bilateral facet arthrosis are noted throughout lumbar spine more notably at L3-4 through L5-S1 levels. No vertebral body compression fractures. No suspicious bony lesions. Soft tissues: Overlying bowel gas pattern is normal. No suspicious soft tissue calcifications. IMPRESSION: No acute vertebral body compression fracture. [id number] spondylitic changes throughout lumbar spine as above. Mild levoscoliosis as above. Dictated by: Jonny Uriarte M.D. on 06/16/2025 at 17:00 Approved by: Jonny Uriarte M.D. on 06/16/2025 at 17:00
== END ==
PROVIDERS: PCP Registered Nurse; Referring Provider Registered Nurse; Visit Provider Registered Nurse
DX: M54.32 Sciatica, left side (principal); M47.816 Spondylosis without myelopathy or radiculopathy, lumbar region; M47.817 Spondylosis without myelopathy or radiculopathy, lumbosacral region; M41.86 Other forms of scoliosis, lumbar region
CPT/HCPCS: 72100